=== PATIENT | female | born 1940 | race Caucasian/White ===

== ENCOUNTER → 2023-11-23 07:31 | Outpatient (REF) | payer MEDICARE, SELFPAY ==
[2023-11-23 09:06] LABS: Blood Urea Nitrogen 28 mg/dl (7-17); Calcium 9.9 mg/dl (8.4-10.2); Carbon Dioxide 31 mmol/L (22-30); Chloride 97 mmol/L (98-107); Glucose 100 mg/dl (70-99); Potassium 4.2 mmol/L (3.5-5.1); Sodium 134 mmol/L (135-145); eGFR > 60.00
== END ==
LOC: REG 07:31
PROVIDERS: ATTENDING PHYSICIAN Specialist; FAMILY PHYSICIAN Internal Medicine Geriatric Medicine
DX: I15.9 Secondary hypertension, unspecified (principal)
CPT/HCPCS: 36415; 80048

== ENCOUNTER → 2023-12-14 12:41 | Outpatient (REF) | payer MEDICARE, SELFPAY | LOC: RAD 12:41 | PROVIDERS: ATTENDING PHYSICIAN Internal Medicine Cardiovascular Disease; FAMILY PHYSICIAN Internal Medicine Geriatric Medicine | DX: Z98.890 Other specified postprocedural states (principal); G45.9 Transient cerebral ischemic attack, unspecified | CPT/HCPCS: 93880 ==

== ENCOUNTER → 2023-12-22 15:04 | Outpatient (REF) | payer MEDICARE, SELFPAY | LOC: RAD 15:04 | PROVIDERS: ATTENDING PHYSICIAN Physician Assistant; FAMILY PHYSICIAN Internal Medicine Geriatric Medicine | DX: M15.0 Primary generalized (osteo)arthritis (principal); M25.531 Pain in right wrist; M25.551 Pain in right hip; M79.651 Pain in right thigh; M80.00XA Age-related osteoporosis with current pathological fracture, unspecified site, initial encounter for fracture | CPT/HCPCS: 73100; 73130; 73502; 73552 ==

== ENCOUNTER → 2024-01-27 07:26 | Outpatient (REF) | payer MEDICARE, SELFPAY ==
[2024-01-27 08:30] LABS: % Basophils 1.1 % (0-2); % Eosinophils 1.1 % (0-6); % Immature Granulocytes 0.2 % (0-0.5); % Lymphocytes 35.2 % (20.5-51.1); % Monocytes 11.8 % (1.7-9.3); % Neutrophils 50.6 % (42.2-75.2); Absolute Basophils 0.1 10^3/uL (0-0.2); Absolute Eosinophils 0.1 10^3/uL (0-0.7); Absolute Lymphocytes 1.9 10^3/uL (1.2-3.4); Absolute Monocytes 0.6 10^3/uL (0.1-0.6); Absolute Neutrophils 2.7 10^3/uL (1.4-6.5); Hematocrit 35.6 % (37.0-47.0); Hemoglobin 12.1 g/dL (12.0-16.0); Mean Corpuscular Hgb 30.5 pg (27.0-31.0); Mean Corpuscular Volume 89.7 fL (81.0-99.0); Mean Platelet Volume 8.5 fL (7.4-10.4); Nucleated Red Blood Cells % 0 %; Platelet Count 321 10^3/uL (130-400); Red Blood Cell Count 3.97 10^6/uL (4.20-5.40); Red Cell Dist. Width 13.1 % (11.5-14.5); White Blood Cell Count 5.3 10^3/uL (4.8-10.8)
[2024-01-27 10:03] LABS: ALT (SGPT) 32 U/L (0-35); AST (SGOT) 43 U/L (14-36); Albumin 4.5 g/dl (3.5-5.0); Alkaline Phosphatase 47 U/L (38-126); Blood Urea Nitrogen 27 mg/dl (7-17); Calcium 10.1 mg/dl (8.4-10.2); Carbon Dioxide 29 mmol/L (22-30); Chloride 97 mmol/L (98-107); Glucose 93 mg/dl (70-99); HDL Cholesterol 92 mg/dl; LDL Cholesterol, Calculated 49 mg/dl; Potassium 4.2 mmol/L (3.5-5.1); Sodium 136 mmol/L (135-145); Total Bilirubin 0.6 mg/dl (0.2-1.3); Total Cholesterol 158 mg/dl (50-199); Total Protein 7.6 g/dl (6.3-8.2); Triglyceride 88 mg/dl (10-149); Very Low Density Lipoprotein 17 mg/dl (0-30); eGFR > 60.00
== END ==
LOC: REG 07:26
PROVIDERS: ATTENDING PHYSICIAN Internal Medicine Geriatric Medicine
DX: I48.0 Paroxysmal atrial fibrillation (principal); I10 Essential (primary) hypertension; E78.5 Hyperlipidemia, unspecified; I49.5 Sick sinus syndrome; Z95.0 Presence of cardiac pacemaker; R07.9 Chest pain, unspecified; M80.00XD Age-related osteoporosis with current pathological fracture, unspecified site, subsequent encounter for fracture with routine healing; R06.00 Dyspnea, unspecified; R79.89 Other specified abnormal findings of blood chemistry; E74.39 Other disorders of intestinal carbohydrate absorption; I25.10 Atherosclerotic heart disease of native coronary artery without angina pectoris; Z13.89 Encounter for screening for other disorder
CPT/HCPCS: 36415; 80053; 80061; 85025

== ENCOUNTER → 2024-02-03 14:25 | Outpatient (REF) | payer MEDICARE, SELFPAY ==
[2024-02-03 15:58] LABS: Creatine Phosphokinase 98 U/L (30-135); Uric Acid 4.9 mg/dl (2.5-6.2)
[2024-02-03 16:08] LABS: Erythrocyte Sed Rate 76 mm/hour (0-20)
[2024-02-04 14:54] LABS: Rheumatoid Agglutinin Less Than 10 IU (<10 IU)
[2024-02-06 01:36] LABS: CCP Antibody IgG/IgA 2 Units (0-19)
== END ==
LOC: REG 14:25
PROVIDERS: ATTENDING PHYSICIAN Internal Medicine Rheumatology; FAMILY PHYSICIAN Internal Medicine Geriatric Medicine
DX: M15.0 Primary generalized (osteo)arthritis (principal); M35.3 Polymyalgia rheumatica; M51.37 Other intervertebral disc degeneration, lumbosacral region; M81.0 Age-related osteoporosis without current pathological fracture; R94.5 Abnormal results of liver function studies; Z79.899 Other long term (current) drug therapy
CPT/HCPCS: 36415; 82550; 84550; 85652; 86140; 86200; 86430

== ENCOUNTER → 2024-03-07 07:54 | Outpatient (REF) | payer MEDICARE, SELFPAY ==
[2024-03-07 08:55] LABS: % Basophils 1.4 % (0-2); % Eosinophils 1.6 % (0-6); % Immature Granulocytes 0.2 % (0-0.5); % Lymphocytes 32.6 % (20.5-51.1); % Monocytes 11.5 % (1.7-9.3); % Neutrophils 52.7 % (42.2-75.2); Absolute Lymphocytes 1.4 10^3/uL (1.2-3.4); Absolute Monocytes 0.5 10^3/uL (0.1-0.6); Absolute Neutrophils 2.3 10^3/uL (1.4-6.5); Hematocrit 34.2 % (37.0-47.0); Hemoglobin 11.5 g/dL (12.0-16.0); Mean Corp Hgb Conc. 33.6 g/dL (33.0-37.0); Mean Corpuscular Hgb 30.3 pg (27.0-31.0); Mean Corpuscular Volume 90.2 fL (81.0-99.0); Mean Platelet Volume 8.3 fL (7.4-10.4); Platelet Count 265 10^3/uL (130-400); Red Blood Cell Count 3.79 10^6/uL (4.20-5.40); Red Cell Dist. Width 13.2 % (11.5-14.5); White Blood Cell Count 4.4 10^3/uL (4.8-10.8)
[2024-03-07 08:56] LABS: Absolute Basophils 0.1 10^3/uL (0-0.2); Absolute Eosinophils 0.1 10^3/uL (0-0.7); Nucleated Red Blood Cells % 0 %
[2024-03-07 09:17] LABS: Blood Urea Nitrogen 25 mg/dl (7-17); Calcium 9.5 mg/dl (8.4-10.2); Carbon Dioxide 30 mmol/L (22-30); Chloride 97 mmol/L (98-107); Glucose 100 mg/dl (70-99); Potassium 4.2 mmol/L (3.5-5.1); Sodium 135 mmol/L (135-145); Total CK 189 U/L (30-135); eGFR 55.21
[2024-03-07 09:19] LABS: C-Reactive Protein < 5.00 mg/L (0.0-10.00)
[2024-03-07 09:21] LABS: Iron 109 ug/dl (37-170)
[2024-03-07 09:26] LABS: Percent Saturation 31 % (20-50); Total Iron Binding Capacity 344 ug/dl (265-497)
[2024-03-07 09:43] LABS: CKMB 1.6 ng/ml (0.0-2.4)
[2024-03-07 09:53] LABS: Ferritin 27.5 ng/ml (11.1-264.0)
[2024-03-07 09:58] LABS: Erythrocyte Sed Rate 50 mm/hour (0-20)
[2024-03-07 10:24] LABS: Folate > 20.0 ng/ml (2.76-20); Vitamin B12 860 pg/ml (239-931)
[2024-03-07 15:09] LABS: Rheumatoid Agglutinin Less Than 10 IU (<10 IU)
[2024-03-09 01:53] LABS: CCP Antibody IgG/IgA 3 Units (0-19)
[2024-03-09 18:46] LABS: Albumin 4.05 g/dL (3.75-5.01); Alpha 2 Globulin 0.89 g/dL (0.48-1.05); SPEP IFE Reflex Not Done; Total Protein-Electrophoresis 7.2 g/dL (6.3-8.2)
== END ==
LOC: REG 07:54
PROVIDERS: ATTENDING PHYSICIAN Internal Medicine Rheumatology; FAMILY PHYSICIAN Internal Medicine Geriatric Medicine; OTHER PHYSICIAN Specialist; REFERRING PHYSICIAN Physician Assistant
DX: I15.9 Secondary hypertension, unspecified (principal); M35.3 Polymyalgia rheumatica; R70.0 Elevated erythrocyte sedimentation rate; Z51.81 Encounter for therapeutic drug level monitoring; D64.9 Anemia, unspecified; Z79.899 Other long term (current) drug therapy; M15.0 Primary generalized (osteo)arthritis; M25.50 Pain in unspecified joint; M81.0 Age-related osteoporosis without current pathological fracture; R94.5 Abnormal results of liver function studies
CPT/HCPCS: 36415; 80048; 82550; 82553; 82607; 82728; 82746; 83540; 83550; 84155; 84165; 84550; 85025; 85652; 86140; 86200; 86430

== ENCOUNTER → 2024-03-24 10:44 | Outpatient (REF) | payer MEDICARE, SELFPAY | LOC: WDC 10:44 | PROVIDERS: ATTENDING PHYSICIAN Internal Medicine Geriatric Medicine | DX: Z12.31 Encounter for screening mammogram for malignant neoplasm of breast (principal) | CPT/HCPCS: 77063; 77067 ==

== ENCOUNTER 2024-05-03 09:20 | Emergency (ER) | payer MEDICARE, SELFPAY ==
[2024-05-03] VITALS (16 sets, daily range): BP systolic 111–154; BP diastolic 64–95
--- NOTE | 2024-05-03 10:15 | EDRN ---
Pt thinks this is already on file here
[2024-05-03 10:31] LABS: ALT (SGPT) 26 U/L (0-35); AST (SGOT) 37 U/L (14-36); Albumin 4.4 g/dl (3.5-5.0); Alkaline Phosphatase 52 U/L (38-126); Blood Urea Nitrogen 30 mg/dl (7-17); Calcium 9.5 mg/dl (8.4-10.2); Carbon Dioxide 28 mmol/L (22-30); Chloride 96 mmol/L (98-107); Glucose 158 mg/dl (70-99); Potassium 4.3 mmol/L (3.5-5.1); Sodium 133 mmol/L (135-145); Total Bilirubin 0.5 mg/dl (0.2-1.3); Total Protein 7.2 g/dl (6.3-8.2); eGFR 55.21
[2024-05-03 10:37] LABS: % Basophils 0.7 % (0-2); % Eosinophils 0.9 % (0-6); % Immature Granulocytes 0.4 % (0-0.5); % Lymphocytes 26.5 % (20.5-51.1); % Monocytes 10.1 % (1.7-9.3); % Neutrophils 61.4 % (42.2-75.2); Absolute Eosinophils 0.1 10^3/uL (0-0.7); Absolute Lymphocytes 1.5 10^3/uL (1.2-3.4); Absolute Monocytes 0.6 10^3/uL (0.1-0.6); Absolute Neutrophils 3.5 10^3/uL (1.4-6.5); Hematocrit 37.2 % (37.0-47.0); Mean Corp Hgb Conc. 34.9 g/dL (33.0-37.0); Mean Corpuscular Hgb 30.4 pg (27.0-31.0); Mean Corpuscular Volume 86.9 fL (81.0-99.0); Mean Platelet Volume 8.5 fL (7.4-10.4); Nucleated Red Blood Cells % 0 %; Platelet Count 330 10^3/uL (130-400); Red Blood Cell Count 4.28 10^6/uL (4.20-5.40); Red Cell Dist. Width 13.1 % (11.5-14.5); White Blood Cell Count 5.6 10^3/uL (4.8-10.8)
--- NOTE | 2024-05-03 11:30 | ED.GENMED ---
History of Present Illness
General
Chief Complaint: Heart Rate Problem
Source: patient
Exam Limitations: none
Time Seen by Provider: 05/03/24 09:36
History of Present Illness
History of Present Illness:
83-year-old female with pacemaker history of atrial fibrillation on Xarelto presents in referral from cardiology office after office was notified from the device that patient has been in rapid A-fib since 3 days ago. She does note some shortness of
breath but denies chest tightness. She denies pain. She states she has been under a lot of stress. No other complaints at this time
Past History
Past History
ED Past Medical History: HTN and Other (Carotid endarterectomy, renal artery bypass 20 years ago and failed, spinal stenosis corrected by surgery, left hip prosthesis)
Social History
Tobacco: Non-smoker
Personal:
Phy Exam
Physical Exam
Physical Exam:
General: Well-appearing female no acute respiratory distress
HEENT: Normocephalic atraumatic
Heart: Tachycardic and irregular
Lungs: Clear no wheeze
Abdomen soft nontender
Extremities: No cyanosis
Course
Orders/Labs/Results
Orders:
Orders
05/03/24 09:31
Electrocardiogram (*1) Urgent
Reason for Study: Atrial Fibrillation
05/03/24 09:32
EKG- Treatment ONCE
05/03/24 09:49
TSH Reflex To Free T4 Urgent
05/03/24 10:09
Complete Blood Count/With Diff Urgent
Comprehensive Metabolic Panel Urgent
05/03/24 10:41
Add On- LAB Urgent
Tests Added?: tsh
05/03/24 10:46
Propofol [Diprivan] 20 ml .ROUTE .STK-MED
05/03/24 11:02
Electrocardiogram (*1) Urgent
Reason for Study: Atrial Fibrillation
EKG- Treatment ONCE
Abnormal Lab Results
05/03/24
10:09
Monocytes % 10.1 H %
(1.7-9.3)
Sodium 133 L mmol/L
(135-145)
Chloride 96 L mmol/L
(98-107)
BUN 30 H mg/dl
(7-17)
Glucose 158 H mg/dl
(70-99)
AST 37 H U/L
(14-36)
05/03/24 10:09
05/03/24 10:09
Vital Signs
Initial and Last Documented VS:
Initial Vital Signs
Pulse Resp Pulse Ox
139 20 97
05/03/24 09:41 05/03/24 09:41 05/03/24 09:41
Last Documented Vital Signs
Temp Pulse Resp BP Pulse Ox
97.8 F 63 17 129/84 99
05/03/24 09:52 05/03/24 11:35 05/03/24 11:35 05/03/24 11:35 05/03/24 11:35
Procedures
Moderate Sedation
ASA Risk Score: Class II
Chart and allergies reviewed: Yes
Consent for anesthesia obtained: Yes
Time out completed (validating right patient & procedure): Yes
Moderate Sedation Start Time(when first medication is given): 11:00
History of difficult intubation: No
Airway free of obstruction: Yes
Patient has a gag reflex: Yes
Patient is able to open mouth: Yes
Patient has no dentures: Yes
Patient has no loose teeth: Yes
Medication administered by Provider during Moderate Sedation: IV Propofol (mg)
Total dose administered: 4
Time drug administered: 11:00
Moderate Sedation Procedure End Time: 11:10
MDM/Problems Addressed
Differential Diagnosis Includes:
EKG shows rapid atrial fibrillation. Patient is anticoagulated. She has significant adverse reaction to calcium channel blockers and beta-blockers. She would be a good candidate for cardioversion. Discussed with emergency room attending as well
as cardiology on-call. Cardiology in agreement. Written consent obtained for moderate sedation with cardioversion.
Sedation performed by emergency room attending. Total of 40 mg of propofol was required 200 J of synchronized cardioversion. 1 attempt of cardioversion was successful. Resumed into a sinus rhythm that is rate controlled.
*Critical Care Note
Total Time (30-74mins, 75-104mins- exclusive of procedures): Not Applicable
ED Attending Note
-
Portions of this chart may have been created with voice recognition software.� Occasional wrong word or��sound alike� substitutions may have occurred due to the inherent limitations of voice recognition software.
Discharge Plan
Departure
Patient Disposition: Home (Routine Discharge)
Date of Disposition: 05/03/24
Time of Disposition: 12:02
Patient with high blood pressure during this ER visit?: No
Discharge Problem:
Atrial fibrillation
Instructions: Atrial Fibrillation (DC), MODERATE SEDATION ADULT
Prescriptions:
No Action
valsartan [Diovan] 160 MG tablet
160 mg PO DAILY
Patient Comments:
aliskiren [Tekturna] 150 MG tablet
150 mg PO DAILY
Xarelto 20 MG tablet
20 mg PO QPM
rosuvastatin [Crestor] 40 MG tablet
20 mg PO DAILY
atenolol 25 MG tablet
25 mg PO DAILY
coenzyme Q10 [Co Q-10] 100 MG capsule
300 mg PO DAILY
fish oil-dha-epa 1 EACH capsule
1 ea PO DAILY
cholecalciferol (vitamin D3) [Vitamin D3] 1,000 UNIT tablet
1,000 unit PO DAILY
ezetimibe 10 MG tablet
10 mg PO DAILY
multivitamin Tablet
1 tab PO DAILY
acetaminophen 500 mg Tablet
250 mg PO Q6H PRN (Reason: pain)
aspirin 81 mg Tablet,Chewable
81 mg PO DAILY
vitamin B complex Tablet
1 tab PO DAILY
Referrals:
Vern Daniels MD [Family Provider] -
Activity Restrictions/Additional Instructions:
Continue current medication regimen. Do not drive today. Follow-up with your manager pe.
Interventions
Interventions:
*Neglect/Abuse Screening Last Done: 05/03/24 10:13
ED- Fall Risk Assessment Last Done: 05/03/24 10:34
*ED COVID-19 Vaccine History Last Done: 05/03/24 10:34
ED- Cardiac Assessment Last Done: 05/03/24 10:12
ED- Pulmonary Assessment Last Done: 05/03/24 10:12
Discharge Date and Time
Print Language: PASHTO
[2024-05-03 13:11] LABS: TSH Reflex To Free T4 1.43 uIU/ml (0.47-4.68)
== END 2024-05-03 12:17 | disposition home or self-care (01) ==
LOC: EMR 09:20
PROVIDERS: Physician Assistant; EMERGENCY PHYSICIAN Emergency Medicine; FAMILY PHYSICIAN Internal Medicine Geriatric Medicine
DX: I48.91 Unspecified atrial fibrillation (principal); R06.02 Shortness of breath; I10 Essential (primary) hypertension; M48.00 Spinal stenosis, site unspecified; Z79.01 Long term (current) use of anticoagulants; Z96.642 Presence of left artificial hip joint; Z88.6 Allergy status to analgesic agent; Z88.8 Allergy status to other drugs, medicaments and biological substances; Z91.048 Other nonmedicinal substance allergy status
CPT/HCPCS: 99285; 92960; 99152; 80053; 84443; 85025; 93005

== ENCOUNTER 2024-05-13 15:01 | Inpatient (IN) | payer MEDICARE, SELFPAY ==
[2024-05-13] VITALS (18 sets, daily range): BP systolic 97–154; BP diastolic 61–116; BMI 24.3
--- NOTE | 2024-05-13 09:35 | ED.GENMED ---
History of Present Illness
General
Chief Complaint: Heart Rate Problem
Source: patient, records, family and previous hospital records
Exam Limitations: none
Time Seen by Provider: 05/13/24 09:12
Nursing documentation reviewed up to this point in time: agreed with
History of Present Illness
History of Present Illness:
83-year-old female A-fib status post ablation maintained on Cardizem and Xarelto status post cardioversion in the ER 10 days ago believes she has been in A-fib for 3 to 4 days, felt some fast heart rates heart rate was fast and took her blood
pressure mild chest pressure no shortness of breath no fever or chills, has been compliant with her meds,
Past History
Past History
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
ED Past Surgical History: Cardiac (Cryoballoon)
Social History
Tobacco: Non-smoker
Alcohol: None
Drug: None
Personal:
Living: with family
Employment: Retired
Review of Systems
Review of Systems
All Other Systems: Not applicable
Constitutional: Denies fever or fatigue
EENT: Reports no symptoms
Respiratory: Denies cough
Cardiac: Reports palpitations; Denies chest pain or syncope
ABD/GI: Reports no symptoms
: Reports no symptoms
Musculoskeletal: Reports no symptoms
Skin: Reports no symptoms
Neurological: Reports dizzy and weakness
Endocrine: Reports no symptoms
Phy Exam
Physical Exam
Physical Exam:
Physical Exam
General: no apparent distress, not acutely ill
Neck: No jaundice
Heart: Tachycardia
Lungs: no acute respiratory distress. clear bilaterally
Abdomen: Nontender
Neuro: alert and oriented. no focal neurological deficits
Skin: no rash
Psychiatric: well kept. interactive and cooperative
Extremities: no edema.
Course
Orders/Labs/Results
Orders:
Orders
05/13/24 09:01
EKG [Electrocardiogram (*1)] Urgent
Reason for Study: Atrial Fibrillation
EKG- Treatment ONCE
05/13/24 09:34
Complete Blood Count/With Diff Urgent
Comprehensive Metabolic Panel Urgent
Magnesium Urgent
TSH Urgent
05/13/24 09:39
Diltiazem HCl [Cardizem] 10 mg IV NOW STA
05/13/24 09:45
Diltiazem 125 mg/125 ml Nss [Cardizem] 125 mg in 125 ml IV PER PROTOCOL
Initial dose in mg/hr, then titrate:: 5
Titrate to keep:: Heart rate 80-100 bpm
Titrate by mg/hr:: 5 mg/hr
Frequency of titrations (minutes):: 15
Maximum dose in mg/hr:: 15
05/13/24 10:49
CARDIOLOGY CONSULT Urgent
Consulting Provider: Rohan Lott
Was physician already notified: Yes
05/13/24 11:39
Amiodarone [Pacerone] 400 mg PO NOW STA
Abnormal Lab Results
05/13/24
09:34
Absolute Monos (auto) 0.8 H 10^3/uL
(0.1-0.6)
Monocytes % 11.2 H %
(1.7-9.3)
BUN 33 H mg/dl
(7-17)
Creatinine 1.1 H mg/dL
(0.6-1.0)
Glucose 115 H mg/dl
(70-99)
AST 38 H U/L
(14-36)
05/13/24 09:34
05/13/24 09:34
Vital Signs
Initial and Last Documented VS:
Initial Vital Signs
Temp Pulse Resp BP Pulse Ox
97.7 F 101 18 118/89 97
05/13/24 09:07 05/13/24 09:07 05/13/24 09:07 05/13/24 09:07 05/13/24 09:07
Last Documented Vital Signs
Temp Pulse Resp BP Pulse Ox
97.7 F 96 24 132/67 96
05/13/24 09:07 05/13/24 13:00 05/13/24 13:00 05/13/24 13:00 05/13/24 13:00
MDM/Problems Addressed
Differential Diagnosis Includes:
A-fib RVR status post ablation status post pacemaker DC cardioversion
No fevers nontoxic-appearing
MDM/Problems Addressed:
Fast heart rate will need to clarify her allergies as they are incongruent with her history and the allergy
Chronic conditions affecting care: Arrhythmia
Acute Exacerbation and/or Progression of Chronic Illness: Arrhythmia
*Pulse Oximetry
Patient hypoxic: no
*EKG
Interpreted by ED Provider?: Yes
*Critical Care Note
Total Time (30-74mins, 75-104mins- exclusive of procedures): 14
Update Note
Update Note:
Medication allergies noted medication list noted patient takes Cardizem at home reviewed with pharmacy we will proceed with IV Cardizem will ask pharmacist update her allergy list
Update reviewed with cardiology will be admitted to the hospitalist service amiodarone has been started
ED Attending Note
-
Portions of this chart may have been created with voice recognition software.� Occasional wrong word or��sound alike� substitutions may have occurred due to the inherent limitations of voice recognition software.
Discharge Plan
Departure
Patient Disposition: Admit
Date of Disposition: 05/13/24
Time of Disposition: 13:54
Admit to: IVU
Presentation/result/management discussed w/ accepting MD/DO: Hospitalist
Patient with high blood pressure during this ER visit?: No
Condition: Fair
Covid-19: Not Applicable
Discharge Problem:
Paroxysmal atrial fibrillation
Prescriptions:
No Action
valsartan [Diovan] 160 MG tablet
160 mg PO QPM
Patient Comments:
aliskiren [Tekturna] 150 MG tablet
150 mg PO DAILY
cholecalciferol (vitamin D3) [Vitamin D3] 1,000 UNIT tablet
1,000 unit PO DAILY
ezetimibe 10 MG tablet
10 mg PO QPM
multivitamin Tablet
1 tab PO DAILY
acetaminophen 500 mg Tablet
250 mg PO Q6HPRN PRN (Reason: mild pain)
aspirin 81 mg Tablet,Chewable
81 mg PO DAILY
vitamin B complex Tablet
1 tab PO DAILY
rosuvastatin [Crestor] 20 mg Tablet
20 mg PO DAILY
nitroglycerin 0.2 mg/hr Patch 24 Hour
1 patch TRANSDERMAL DAILY
hydrochlorothiazide 25 mg Tablet
25 mg PO DAILY
diltiazem HCl 240 mg Tablet Extended Release 24 Hr
240 mg PO DAILY@1400
Hair, Skin and Nails Advanced 3.3 mg iron-25 mcg Tablet
1 tab PO DAILY
Xarelto 20 mg Tablet
20 mg PO QPM
turmeric 400 mg Capsule
400 mg PO DAILY
Referrals:
Rosa Conley CRNP [Specified Professional Personl] - 05/26/24 4:00 pm (You have a cardiology follow-up appointment at the [place] office with Dr. Roberts's nurse practitioner, Rosa. Please call with questions)
Vern Daniels MD [Family Provider] -
Interventions
Interventions:
*Risk Screen - Suicide Last Done: 05/13/24 09:07
*General Assessment Last Done: 05/13/24 09:07
*Neglect/Abuse Screening Last Done: 05/13/24 09:07
ED- Fall Risk Assessment Last Done: 05/13/24 10:08
*ED COVID-19 Vaccine History Last Done: 05/13/24 09:07
ED- Cardiac Assessment Last Done: 05/13/24 10:05
ED- Pulmonary Assessment Last Done: 05/13/24 10:06
Discharge Date and Time
Print Language: [id number]
[2024-05-13 09:47] LABS: % Basophils 0.9 % (0-2); % Eosinophils 0.9 % (0-6); % Immature Granulocytes 0.3 % (0-0.5); % Lymphocytes 23.5 % (20.5-51.1); % Monocytes 11.2 % (1.7-9.3); % Neutrophils 63.2 % (42.2-75.2); Absolute Basophils 0.1 10^3/uL (0-0.2); Absolute Eosinophils 0.1 10^3/uL (0-0.7); Absolute Lymphocytes 1.6 10^3/uL (1.2-3.4); Absolute Monocytes 0.8 10^3/uL (0.1-0.6); Absolute Neutrophils 4.4 10^3/uL (1.4-6.5); Hematocrit 37.8 % (37.0-47.0); Hemoglobin 13.3 g/dL (12.0-16.0); Mean Corp Hgb Conc. 35.2 g/dL (33.0-37.0); Mean Corpuscular Hgb 30.9 pg (27.0-31.0); Mean Corpuscular Volume 87.7 fL (81.0-99.0); Mean Platelet Volume 8.2 fL (7.4-10.4); Nucleated Red Blood Cells % 0 %; Platelet Count 281 10^3/uL (130-400); Red Blood Cell Count 4.31 10^6/uL (4.20-5.40)
[2024-05-13] MEDS: CARDIZEM 10 MG IV (09:53)
[2024-05-13] MEDS: CARDIZEM 125 IV (09:54)
[2024-05-13 10:23] LABS: ALT (SGPT) 22 U/L (0-35); AST (SGOT) 38 U/L (14-36); Albumin 4.5 g/dl (3.5-5.0); Alkaline Phosphatase 58 U/L (38-126); Blood Urea Nitrogen 33 mg/dl (7-17); Calcium 9.8 mg/dl (8.4-10.2); Carbon Dioxide 27 mmol/L (22-30); Chloride 99 mmol/L (98-107); Glucose 115 mg/dl (70-99); Magnesium 2.1 mg/dl (1.6-2.3); Potassium 3.8 mmol/L (3.5-5.1); Sodium 138 mmol/L (135-145); Total Bilirubin 0.7 mg/dl (0.2-1.3); Total Protein 7.4 g/dl (6.3-8.2); eGFR 49.24
[2024-05-13 10:39] LABS: TSH 0.88 uIU/ml (0.47-4.68)
--- NOTE | 2024-05-13 11:12 | CON.CAR ---
Addendum entered and electronically signed by Rohan Lott MD 05/13/24 15:11:
I saw and examined the patient.
The Dental Patient Coordinator's note was reviewed and I agree with the note.
Comment: Briefly, 83-year-old woman past medical history of atrial fibrillation with prior PVI in 2015 who presents in atrial fibrillation with rapid ventricular response
Of note, she presented to the emergency department on 05/03/24 with rapid A-fib and underwent direct-current cardioversion at that time
Started on Cardizem drip in the [facility] and HRs have improved
On PO cardizem 240 mg once daily at home, will increase to 240 twice daily for better heart rate control
Add p.o. amiodarone
Wean diltiazem drip for heart rate goal less than 110 bpm
If she does not spontaneously convert we can arrange for outpatient direct-current cardioversion
Continue Xarelto for cardioembolic prophylaxis
Discussed with daughter who was at bedside
Original Note:
Consultation
Consultation Request
Date/Time Consultation Performed: 05/13/24
Requesting Provider: Dr. Talley
Performing Provider: Lydia Hein PA-C for Dr. Lott
Reason for Consultation: afib
Medical History
-
Chief Complaint: afib
History of Present Illness:
Patient is an 83-year-old female with past medical history of paroxysmal atrial fibrillation status post PVI in 2014 on chronic Cardizem and Xarelto, hypertension, history of dual-chamber pacemaker, history of stroke, history of CEA, fibromuscular
dysplasia, hyperlipidemia. Her arrhythmia has been followed through her device post PVI. She reports an occasional brief episode here and there, however nothing sustained. She reports she was called by our office on 05/03 telling her she had been
in atrial fibrillation with rapid rates for the last 3 days and to go to the emergency room. She was cardioverted in the ER on 05/03. With this episode she had noted she felt more jittery and agitated and described some dyspnea on exertion and
tightness. She reports she felt well for several days, however then states that she had increased stress related to her 's medical illnesses. She states this morning when she checked her pulse she was in the 130s and noted headache and came
to the emergency room for further evaluation, thinking she was back in atrial fibrillation. EKG A-fib with RVR. She was started on IV Cardizem and heart rates now better controlled. She reports history of intolerance to beta-blockers.
PMH:
Paroxysmal atrial fibrillation
Status post PVI in 2014
Chronic anticoagulation with Xarelto
Labile Hypertension
History of dual-chamber pacemaker
History of L stroke
History of R CEA
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
Fibromuscular dysplasia s/p remote surgery
History of PMR
Hyperlipidemia
History of hyponatremia
History of mildly abnormal LFTs
History of splenic artery aneurysm
Past Medical History
Past Medical History: Other (in HPI)
Social History
Tobacco: Former Smoker
Alcohol: Occasional
Personal:
Living: With Family
Family History
Family History: CAD and Hypertension
Allergies / Home Medications
Allergy/AdvReac Type Severity Reaction Status Date / Time
cephalexin Allergy Rash Verified 05/13/24 09:10
iodine Allergy Hives Verified 05/13/24 09:10
lisinopril Allergy Swelling Verified 05/13/24 09:10
perfume Allergy heart Verified 05/13/24 09:10
speeds up
propranolol Allergy Unknown Verified 05/13/24 09:10
tramadol Allergy Nausea / Verified 05/13/24 09:10
Vomiting
�Medication �Instructions �Recorded �Confirmed �Type
aliskiren 150 mg tablet (Tekturna) 150 mg PO DAILY 08/28/14 06/23/22 History
rivaroxaban 20 mg tablet (Xarelto) 20 mg PO QPM 08/28/14 06/23/22 History
valsartan 160 mg tablet (Diovan) 160 mg PO DAILY 08/28/14 06/23/22 History
atenolol 25 mg tablet 25 mg PO DAILY 08/29/14 06/23/22 History
coenzyme Q10 100 mg capsule (Co 300 mg PO DAILY 08/29/14 06/23/22 History
Q-10)
rosuvastatin 40 mg tablet (Crestor) 20 mg PO DAILY 08/29/14 06/23/22 History
cholecalciferol (vitamin D3) 25 1,000 unit PO DAILY 10/09/14 06/23/22 History
mcg (1,000 unit) tablet (Vitamin
D3)
fish oil-dha-epa 1,200 mg-144 1 ea PO DAILY 10/09/14 06/23/22 History
mg-216 mg capsule
ezetimibe 10 mg tablet 10 mg PO DAILY 10/19/19 06/23/22 History
acetaminophen 500 mg tablet 250 mg PO Q6H PRN pain 06/04/22 06/23/22 History
aspirin 81 mg chewable tablet 81 mg PO DAILY 06/04/22 06/23/22 History
multivitamin 1 tab PO DAILY 06/04/22 06/23/22 History
vitamin B complex 1 tab PO DAILY 06/04/22 06/23/22 History
Review of Systems
-
History Source: Patient
All other systems: Negative unless noted
Physical Exam
Vital Signs
Temp Pulse Resp BP Pulse Ox
97.7 F 94 20 133/116 98
05/13/24 09:07 05/13/24 10:53 05/13/24 10:53 05/13/24 10:53 05/13/24 10:53
Lab Results
05/13/24 09:34
05/13/24 09:34
Physical Exam
General: No Apparent Distress and Comfortable
HEENT: Normocephalic, Anicteric and Moist Mucous Membranes
Respiratory: Clear and Non Labored Respirations
Cardiac: S1/S2 and Irregular Rhythm
GI: Soft, Non Tender, Non Distended and Normal Bowel Sounds
Musculoskeletal: No Clubbing, No Cyanosis and No Edema
Skin: Warm and Dry
Neuro: AO x 3
Impression / Plan
-
Primary Marriage And Family Teacher: Dr. Milly Worthy
Assessment:
Presentation with afib RVR
Paroxysmal atrial fibrillation
Status post PVI in 2014
Status post successful CV in ER 05/03/24
Chronic anticoagulation with Xarelto
Labile Hypertension
History of [employer] dual-chamber pacemaker
History of L stroke
History of R CEA
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
Fibromuscular dysplasia s/p remote surgery
History of PMR
Hyperlipidemia
History of hyponatremia
History of mildly abnormal LFTs
History of splenic artery aneurysm
ECHO 08/26/2023: EF 60 to 65%, stage II diastolic dysfunction, MAC, mild MR, mild , peak/mean gradients 15/9 mmHg, MERCEDES 1.2 to 1.3 cm�, trace AR, mild to moderate TR, PAP 39 mmHg
Plan:
-Patient presents with recurrence of A-fib with rapid ventricular response status post recent cardioversion in ER 05/03/2024
-She remains in rate controlled A-fib on 7.5 of IV Cardizem at present
-TSH within normal limits
-We discussed option of antiarrhythmic drug therapy with patient. She does have history of sensitivities to medications. She ideally does not want to stay in hospital if possible as it is primary caregiver for her . Would consider
initiation of p.o. amiodarone therapy, perhaps 400 mg now with 200 mg twice daily for 1 to 2 weeks then decreasing to 200 mg daily
-Continue p.o. Cardizem, could consider increasing dose if blood pressure allows
-We discussed outpatient EP eval to consider redo ablation
-Continue Xarelto
-last echo from 08/2023 with results as above
-Does not appear to be volume overloaded on examination
-Continue monitoring of arrhythmia through pacemaker
-Will arrange outpatient cardiac follow-up
-d/w ER
Data Reviewed
-
EKG: Tracing Personally Visualized and interpreted
Medical Tests (Nuc Med, Echo etc): Report Reviewed by me
Labs: Labs Reviewed by me
Old Records: Reviewed
[2024-05-13] MEDS: PACERONE 400 MG PO ×2 (12:02→20:39)
--- NOTE | 2024-05-13 13:00 | EDRN ---
D/C Cardizem infusion; VO DR Talley
--- NOTE | 2024-05-13 14:34 | HPS.HSE ---
Family Physician
-
Family Physician: Vern Daniels
Chief Complaint
-
I was told, I am in Afib.
History of Present Illness
82-year-old female past medical history of atrial fibrillation who was recently seen in the ER for atrial fibrillation with rapid ventricular response. Patient underwent cardioversion and was discharged home. Patient's at home she has been under
significant amount of stress as taking care of her spouse who has Parkinson's disease with dementia. Recently she checked her blood pressure and was found to be elevated. Also noticed her pulse on the blood pressure machine was seen to be elevated
and rhythm was irregular. Patient states she felt like she has been atrial fibrillation for the past 72 hours. Denies any chest pain. States of some palpitations. States she has pacemaker and she was called stating that she is in A-fib for
the past 3 days. She says she has been feeling ill for the past 3 days and thought she is back in A-fib. Denies any nausea or vomiting. Denies any headache neck pain chest pain diarrhea or dysuria. States she has history of renal artery stenosis
and her blood pressure is labile at times. In the ER patient was started on IV Cardizem and was evaluated by cardiology.
Medical History
Past Medical History
Past Medical History: Reports Other
Additional Past Medical History:
Paroxysmal atrial fibrillation status post ablation
Chronic anticoagulation
Primary hypertension
History of renal artery stenosis
Fibromuscular dysplasia
Hyperlipidemia
Past Surgical History: Reports Other
Additional Past Surgical History:
Pacemaker implantation
History of carotid endarterectomy
Social History
Tobacco: Former Smoker
Personal:
Living: With Family
Family History
Family History: Not pertinent
Allergies / Home Medications
Allergies reflects when Allergies were last updated in [facility].
Home Medications with original date entered in [facility]
Allergy/Medication List:
Allergies
Allergy/AdvReac Type Severity Reaction Status Date / Time
cephalexin Allergy Rash Verified 05/13/24 09:10
iodine Allergy Hives Verified 05/13/24 09:10
lisinopril Allergy Swelling Verified 05/13/24 09:10
perfume Allergy heart Verified 05/13/24 09:10
speeds up
propranolol Allergy Unknown Verified 05/13/24 09:10
tramadol Allergy Nausea / Verified 05/13/24 09:10
Vomiting
Home Medications
aliskiren 150 mg tablet (Tekturna) 150 mg PO DAILY 08/28/14
valsartan 160 mg tablet (Diovan) 160 mg PO QPM 08/28/14
cholecalciferol (vitamin D3) 25 mcg (1,000 unit) tablet (Vitamin D3) 1,000 unit PO DAILY 10/09/14
ezetimibe 10 mg tablet 10 mg PO QPM 10/19/19
acetaminophen 500 mg tablet 250 mg PO Q6HPRN PRN mild pain 06/04/22
aspirin 81 mg chewable tablet 81 mg PO DAILY 06/04/22
multivitamin 1 tab PO DAILY 06/04/22
vitamin B complex 1 tab PO DAILY 06/04/22
diltiazem HCl 240 mg tablet,extended release 24 hr 240 mg PO DAILY@1400 05/13/24
hydrochlorothiazide 25 mg tablet 25 mg PO DAILY 05/13/24
multivitamin,min-ferrous fumarate 3.3 mg-folic 25 mcg-herb tablet (Hair, Skin and Nails Advanced) 1 tab PO DAILY 05/13/24
nitroglycerin 0.2 mg/hr transdermal 24 hour patch 1 patch transdermal DAILY 05/13/24
rivaroxaban 20 mg tablet (Xarelto) 20 mg PO QPM 05/13/24
rosuvastatin 20 mg tablet 20 mg PO DAILY 05/13/24
turmeric 400 mg capsule 400 mg PO DAILY 05/13/24
Review of Systems
-
History Source: Patient
A 12 point ROS was completed and negative except as noted: Yes
Physical Exam
Vital Signs
Vital Signs
Temp Pulse Resp BP Pulse Ox
97.7 F 93 21 127/109 96
05/13/24 09:07 05/13/24 14:00 05/13/24 14:00 05/13/24 14:00 05/13/24 14:00
Physical Exam
General: Well Developed, Well Nourished, No Apparent Distress and Other
HEENT: NormoCephalic, Moist mucous membranes and Atraumatic
Respiratory: Clear
Cardiac: S1/S2, Irregular Rhythm and Tachycardia; No Murmur or Rub
GI: Soft, Non Tender, Non Distended and Normal Bowel Sounds; No Organomegaly
Rectal: Deferred by Provider
Musculoskeletal: No Clubbing, No Cyanosis and No Edema
Skin: No Rash
Neuro: Awake, Alert, Oriented, AO x 3, No Motor Deficits and Nonfocal/grossly intact
Psych: Calm
Laboratory Results
-
05/13/24 09:34
05/13/24 09:34
Laboratory Results
Total Bilirubin 0.7 mg/dl (0.2-1.3) 05/13/24 09:34
AST 38 U/L (14-36) H 05/13/24 09:34
ALT 22 U/L (0-35) 05/13/24 09:34
Alkaline Phosphatase 58 U/L (38-126) 05/13/24 09:34
Impression/Plan
-
#Paroxysmal atrial fibrillation with rapid ventricular response status post ablation status post cardioversion in the past
#History of pacemaker implantation
Cardizem drip was started and then discontinue. HR improved
Patient started on amiodarone loading dose and further amiodarone loading per cards.
Monitor on telemetry
Continue with anticoagulation
Can consider outpatient ablation
TSH wnl
Cardiology has been consulted
#Primary hypertension
#History of renal artery stenosis
Continue with Diovan
Hold HCTZ
Continue Cardizem/Tekturna
Elevated creatinine likely CKD unknown stage
Can hold HCTZ as cardiac meds further adjusted
Osteoporosis and history of chronic back pain with standing/osteoarthritis
Hyperlipidemia
Continue ezetimibe and statin
CAD
Continue nitroglycerin patch
Carotid artery disease status post endarterectomy
Continue with aspirin
Hyperglycemia
Check a1c
DVT prophylaxis with Xarelto
Full code
I spent a total of 78 minutes with the patient or on the floor. More than 50% of this time involved counseling and coordination of care.
[2024-05-13] MEDS: DIOVAN 160 MG PO (17:32)
[2024-05-13] MEDS: XARELTO 20 MG PO (17:32)
[2024-05-13] MEDS: ZETIA 10 MG PO (18:11)
[2024-05-13] MEDS: CARDIZEM CD 240 MG PO (20:39)
[2024-05-14 03:53] VITALS: BP 126/75
[2024-05-14 06:00] VITALS: BMI 24.0
[2024-05-14 07:08] VITALS: BP 143/84
[2024-05-14] MEDS: THERAGRAN 1 TABLET PO (08:25)
[2024-05-14] MEDS: NITRO-DUR 0.2 MG TRANSDERM (08:25)
[2024-05-14] MEDS: CARDIZEM CD 240 MG PO (08:25)
[2024-05-14] MEDS: CRESTOR 20 MG PO (08:25)
[2024-05-14] MEDS: PACERONE 400 MG PO (08:25)
[2024-05-14] MEDS: LOW STRENGTH ASPIRIN 81 MG PO (08:25)
[2024-05-14] MEDS: VITAMIN D3 (cholecalciferol) 25 MCG PO (08:25)
[2024-05-14] MEDS: FLUSH (NSS) 1 FLUSH IV (08:26)
[2024-05-14 08:32] LABS: Blood Urea Nitrogen 25 mg/dl (7-17); Calcium 9.8 mg/dl (8.4-10.2); Carbon Dioxide 29 mmol/L (22-30); Chloride 96 mmol/L (98-107); Estimated Creatinine Clearance 34 ml/min; Glucose 128 mg/dl (70-99); Magnesium 2.1 mg/dl (1.6-2.3); Potassium 4.1 mmol/L (3.5-5.1); Sodium 137 mmol/L (135-145); eGFR > 60.00
[2024-05-14 10:36] VITALS: BMI 24.0
[2024-05-14 11:00] VITALS: BP 114/68
--- NOTE | 2024-05-14 11:28 | W.PN.HOSP.TC ---
Today's Communication/Plan
-
HR improved
cont amiodarone loading dose
cardizem 240 BID
cards recs
Assessment / Plan
Assessment / Plan
#Paroxysmal atrial fibrillation with rapid ventricular response status post ablation status post cardioversion in the past
#History of pacemaker implantation
Cardizem drip was started and then discontinue. Cardizem 240 mg frequency increased to twice daily dosing
Patient started on amiodarone loading dose and further amiodarone loading per cards 400mg BID
Monitor on telemetry
Continue with Xarelto
Can consider outpatient ablation
TSH wnl
Cardiology has been consulted
#Primary hypertension
#History of renal artery stenosis
Continue with Diovan
restart HCTZ
Continue Cardizem/Tekturna
Elevated creatinine likely CKD unknown stage
restart hctz
cr stabilized
Osteoporosis and history of chronic back pain with standing/osteoarthritis
Hyperlipidemia
Continue ezetimibe and statin
CAD
Continue nitroglycerin patch
Carotid artery disease status post endarterectomy
Continue with aspirin
Hyperglycemia
Check a1c
DVT prophylaxis with Xarelto
Full code
Anticipated Discharge: Within 24 hours
Subjective/Interval History
-
Date of Service: May 14, 2024
Remains in A-fib but heart rate controlled
Denies any chest pain palpitations
Objective Data
-
Labs:
Laboratory Results
05/14/24
07:07
Sodium 137
Potassium 4.1
Chloride 96 L
Carbon Dioxide 29
BUN 25 H
Creatinine 0.9
Glucose 128 H
Calcium 9.8
Vital Signs:
Vital Signs
Temp Pulse Resp BP Pulse Ox
97.9 F 87 18 143/84 93
05/14/24 07:08 05/14/24 08:25 05/14/24 07:08 05/14/24 08:25 05/14/24 08:22
I&O
05/13/24 05/14/24 05/15/24
06:59 06:59 06:59
Intake Total 360 / 360
Balance 360 / 360
Physical Exam
-
General: Well Developed and No Apparent Distress
HEENT: Normocephalic, Atraumatic and Moist Mucous Membranes
Respiratory: Clear to Auscultation
Cardiac: S1/S2 and Irregular Rhythm; Negative Murmur, Rub or Gallop
GI: Soft, Nontender, Nondistended and Normal Bowel Sounds; Negative Organomegaly
Rectal: Deferred by Provider
Musculoskeletal: No Clubbing, No Cyanosis and No Edema
Skin: Negative Rash
Neuro: Awake, AO x 3, No Motor Deficits and Nonfocal/Grossly Intact
Psych: Calm
Data Reviewed
-
Total Time Spent with Patient (in minutes): 56
--- NOTE | 2024-05-14 12:34 | W.PN.CARDCBS ---
Today's Communication / Plan
-
Continue amio as putpatient followed by CV and then consideration for EPS/ablation
Impression / Plan
-
Primary Aniline Press Worker: Dr. Milly Worthy
Assessment:
Presentation with afib RVR
Paroxysmal atrial fibrillation
Status post PVI in 2014
Status post successful CV in ER 05/03/24
Chronic anticoagulation with Xarelto
Labile Hypertension
History of [employer] dual-chamber pacemaker
History of L stroke
History of R CEA
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
Fibromuscular dysplasia s/p remote surgery
History of PMR
Hyperlipidemia
History of hyponatremia
History of mildly abnormal LFTs
History of splenic artery aneurysm
ECHO 08/26/2023: EF 60 to 65%, stage II diastolic dysfunction, MAC, mild MR, mild , peak/mean gradients 15/9 mmHg, MERCEDES 1.2 to 1.3 cm�, trace AR, mild to moderate TR, PAP 39 mmHg
Plan:
-Patient presented with recurrence of A-fib and rapid ventricular response status post recent cardioversion in ER 05/03/2024. Previously had been doing well since PVI in 2014
Heart rates have improved and at present we will continue oral amiodarone loading as well as oral Cardizem
Amiodarone currently 400 mg twice daily, upon discharge would use Amio 200 mg TID for 2 more weeks, then 200 mg daily.
Short term control with cardioversion end of next week
Long-term she likely would do better with a rhythm control strategy, either long-term antiarrhythmic drug therapy or mapping and ablation. She tells me she is leaning towards ablation and will discuss further as outpatient.
Continue Xarelto
Last echo from 08/2023 with results as above
Does not appear to be volume overloaded on examination
Continue monitoring of arrhythmia through pacemaker
Discussed with primary service
Total time 55 min
Progress Note - Aniline Press Worker
Subjective
Date of Service: May 14, 2024
she feels 'better'. no SOB or CP at rest
Objective
Labs:
05/13/24 09:34
05/14/24 07:07
Labs
Hgb 13.3 g/dL (12.0-16.0) 05/13/24 09:34
Hct 37.8 % (37.0-47.0) 05/13/24 09:34
Plt Count 281 10^3/uL (130-400) 05/13/24 09:34
Sodium 137 mmol/L (135-145) 05/14/24 07:07
Potassium 4.1 mmol/L (3.5-5.1) 05/14/24 07:07
BUN 25 mg/dl (7-17) H 05/14/24 07:07
Creatinine 0.9 mg/dL (0.6-1.0) 05/14/24 07:07
Glucose 128 mg/dl (70-99) H 05/14/24 07:07
Vital Signs and I&O:
Vital Signs
Temp Pulse Resp BP Pulse Ox
97.9 F 87 18 143/84 93
05/14/24 07:08 05/14/24 08:25 05/14/24 07:08 05/14/24 08:25 05/14/24 08:22
Vital Signs
Temp Pulse Resp BP Pulse Ox
97.9 F 87 18 143/84 93
05/14/24 07:08 05/14/24 08:25 05/14/24 07:08 05/14/24 08:25 05/14/24 08:22
Intake & Output
05/12/24 05/13/24 05/14/24 05/15/24
06:59 06:59 06:59 06:59
Intake Total 360 / 360
Balance 360 / 360
Physical Exam
Physical Exam
well appearing, no distress
Irreg irreg, Nl S1 and S2, no S3 or S4, 2/6 AHSM without rubs
CTA B/L
[2024-05-14 12:53] VITALS: BP 114/68
--- NOTE | 2024-05-14 13:05 | W.DCSUMMARY ---
Discharge Summary
Discharge Data
Date of Admission: 05/13/24
Date of Discharge: 05/14/24
-
Pending Results: No
Hospital Course
83 female past medical history of paroxysmal atrial fibrillation status post cardioversion status post ablation, history of pacemaker implantation, hypertension, osteoporosis, chronic back pain, hyperlipidemia, CAD, carotid artery disease status
post endarterectomy was presenting from home with complaints of not feeling well and was found to be back again in atrial fibrillation with rapid ventricular response. Patient recently was on IV Cardizem infusion which was discontinued per
cardiology and was started on amiodarone. Patient Cardizem p.o. frequency was increased to 240 mg twice daily from daily dosing. Patient heart rate was well-controlled. Patient denies chest pain palpitation. Patient was evaluated further by
corporate consultant and recommended to continue Cardizem twice daily dosing continued and to change amiodarone to 200 mg 3 times daily for 2 weeks then 200 mg daily. Patient will follow-up outpatient with cardiology for further discussion about
possible ablation.
Discharge Plan
-
Patient Disposition: Home with Home Care
Discharge Diagnosis/Procedures: Atrial fibrillation with rapid ventricular response
Condition: Fair
Diet: As tolerated
Activity: As tolerated
Driving Restrictions: As prior to admission
Other Services: VN
Activity Restrictions/Additional Instructions:
Take Amiodarone 200 mg Three time a day for 2 more weeks, then 200 mg daily.
Referrals:
Rosa Conley CRNP [Specified Professional Personl] - 05/26/24 4:00 pm (You have a follow up visit with Dr. Atkins's PROP SAWYER, Rosa Conley, at the [facility] office. Please call with questions. )
Vern Daniels MD [Family Provider] -
Additional Discharge Medication Instructions: Take Amiodarone 200 mg Three time a day for 2 more weeks, then 200 mg daily.
Cardizem 240mg frequency increased to twice a day.
Prescriptions:
New
amiodarone 200 mg tablet
See Rx Instructions .ROUTE .COMPLEX 30 Days Qty: 60 0RF
Rx Instructions:
Take 200 mg TID for 2 more weeks, then 200 mg daily.
Continued
valsartan [Diovan] 160 MG tablet
160 mg PO QPM
Patient Comments:
aliskiren [Tekturna] 150 MG tablet
150 mg PO DAILY
cholecalciferol (vitamin D3) [Vitamin D3] 1,000 UNIT tablet
1,000 unit PO DAILY
ezetimibe 10 MG tablet
10 mg PO QPM
multivitamin Tablet
1 tab PO DAILY
acetaminophen 500 mg Tablet
250 mg PO Q6HPRN PRN (Reason: mild pain)
aspirin 81 mg Tablet,Chewable
81 mg PO DAILY
vitamin B complex Tablet
1 tab PO DAILY
rosuvastatin 20 mg Tablet
20 mg PO DAILY
nitroglycerin 0.2 mg/hr Patch 24 Hour
1 patch TRANSDERMAL DAILY
hydrochlorothiazide 25 mg Tablet
25 mg PO DAILY
Hair, Skin and Nails Advanced 3.3 mg iron-25 mcg Tablet
1 tab PO DAILY
Xarelto 20 mg Tablet
20 mg PO QPM
turmeric 400 mg Capsule
400 mg PO DAILY
Changed
diltiazem HCl 240 mg Tablet Extended Release 24 Hr
240 mg PO BID 30 Days Qty: 60 0RF
Discharge Orders:
Discharge Patient (As Directed); Ordered 05/14/24
Ordered By: Meo Nazario
Discharge Date and Time
Discharge Date/Time: 05/14/24 17:25
Print Language: SALVADOREAN
[2024-05-14 15:16] VITALS: BP 111/68
[2024-05-14 16:16] VITALS: BP 111/68
== END 2024-05-14 17:25 | disposition home health service (06) | DRG 310 ==
LOC: 4 EAST ACU 15:01
PROVIDERS: ADMITTING PHYSICIAN Hospitalist; CONSULT PHYSICIAN Internal Medicine Cardiovascular Disease; EMERGENCY PHYSICIAN Emergency Medicine; FAMILY PHYSICIAN Internal Medicine Geriatric Medicine
DX: I48.0 Paroxysmal atrial fibrillation (principal); I25.10 Atherosclerotic heart disease of native coronary artery without angina pectoris; I12.9 Hypertensive chronic kidney disease with stage 1 through stage 4 chronic kidney disease, or unspecified chronic kidney disease; N18.9 Chronic kidney disease, unspecified; M81.0 Age-related osteoporosis without current pathological fracture; E78.5 Hyperlipidemia, unspecified; Z79.82 Long term (current) use of aspirin; Z79.01 Long term (current) use of anticoagulants; Z95.0 Presence of cardiac pacemaker; Z86.73 Personal history of transient ischemic attack (TIA), and cerebral infarction without residual deficits
CPT/HCPCS: 80048; 80053; 83735; 84443; 85025; 93005; 96374; 99285

== ENCOUNTER 2024-05-20 07:17 | Day surgery (SDC) | payer MEDICARE, SELFPAY | END 2024-05-20 08:20 | disposition home or self-care (01) | LOC: CATH 07:17 | PROVIDERS: ATTENDING PHYSICIAN Nuclear Medicine Nuclear Cardiology; FAMILY PHYSICIAN Internal Medicine Geriatric Medicine; OTHER PHYSICIAN Internal Medicine Cardiovascular Disease | DX: I48.0 Paroxysmal atrial fibrillation (principal); Z53.09 Procedure and treatment not carried out because of other contraindication; I25.10 Atherosclerotic heart disease of native coronary artery without angina pectoris; I10 Essential (primary) hypertension; E78.5 Hyperlipidemia, unspecified; Z79.01 Long term (current) use of anticoagulants; Z79.82 Long term (current) use of aspirin | CPT/HCPCS: 93005 ==

== ENCOUNTER → 2024-06-08 07:56 | Outpatient (REF) | payer MEDICARE, SELFPAY ==
[2024-06-08 08:33] LABS: % Basophils 1.1 % (0-2); % Eosinophils 2.2 % (0-6); % Immature Granulocytes 0.2 % (0-0.5); % Lymphocytes 28.1 % (20.5-51.1); % Monocytes 10.4 % (1.7-9.3); Absolute Basophils 0.1 10^3/uL (0-0.2); Absolute Eosinophils 0.1 10^3/uL (0-0.7); Absolute Lymphocytes 1.3 10^3/uL (1.2-3.4); Absolute Monocytes 0.5 10^3/uL (0.1-0.6); Absolute Neutrophils 2.7 10^3/uL (1.4-6.5); Hematocrit 35.7 % (37.0-47.0); Hemoglobin 12.1 g/dL (12.0-16.0); Mean Corp Hgb Conc. 33.9 g/dL (33.0-37.0); Mean Corpuscular Hgb 29.8 pg (27.0-31.0); Mean Corpuscular Volume 87.9 fL (81.0-99.0); Mean Platelet Volume 8.5 fL (7.4-10.4); Nucleated Red Blood Cells % 0 %; Platelet Count 281 10^3/uL (130-400); Red Blood Cell Count 4.06 10^6/uL (4.20-5.40); Red Cell Dist. Width 13.4 % (11.5-14.5); White Blood Cell Count 4.6 10^3/uL (4.8-10.8)
[2024-06-08 09:12] LABS: ALT (SGPT) 36 U/L (0-35); AST (SGOT) 40 U/L (14-36); Albumin 4.3 g/dl (3.5-5.0); Alkaline Phosphatase 53 U/L (38-126); Blood Urea Nitrogen 24 mg/dl (7-17); Calcium 9.2 mg/dl (8.4-10.2); Carbon Dioxide 28 mmol/L (22-30); Chloride 100 mmol/L (98-107); Glucose 106 mg/dl (70-99); Sodium 142 mmol/L (135-145); Total Bilirubin 0.6 mg/dl (0.2-1.3); Total Protein 7.2 g/dl (6.3-8.2); eGFR 55.21
[2024-06-08 09:23] LABS: Free T4 1.61 ng/dl (0.78-2.19)
[2024-06-08 10:32] LABS: TSH 1.95 uIU/ml (0.47-4.68)
== END ==
LOC: REG 07:56
PROVIDERS: ATTENDING PHYSICIAN Internal Medicine Geriatric Medicine
DX: Z09 Encounter for follow-up examination after completed treatment for conditions other than malignant neoplasm (principal); I48.0 Paroxysmal atrial fibrillation; I10 Essential (primary) hypertension; E78.5 Hyperlipidemia, unspecified; I49.5 Sick sinus syndrome; Z95.0 Presence of cardiac pacemaker; R07.9 Chest pain, unspecified; M80.00XD Age-related osteoporosis with current pathological fracture, unspecified site, subsequent encounter for fracture with routine healing; R06.00 Dyspnea, unspecified; R79.89 Other specified abnormal findings of blood chemistry; E74.39 Other disorders of intestinal carbohydrate absorption; I25.10 Atherosclerotic heart disease of native coronary artery without angina pectoris; Z13.89 Encounter for screening for other disorder
CPT/HCPCS: 80053; 84439; 84443; 85025

== ENCOUNTER → 2024-06-15 13:44 | Outpatient (REF) | payer MEDICARE, SELFPAY | LOC: RCS 13:44 | PROVIDERS: ATTENDING PHYSICIAN Nurse Practitioner; FAMILY PHYSICIAN Internal Medicine Geriatric Medicine | DX: I48.0 Paroxysmal atrial fibrillation (principal); I10 Essential (primary) hypertension | CPT/HCPCS: 93306 ==

== ENCOUNTER → 2024-09-21 09:33 | Outpatient (REF) | payer MEDICARE, SELFPAY ==
[2024-09-21 11:43] LABS: ALT (SGPT) 31 U/L (0-35); AST (SGOT) 46 U/L (14-36); Albumin 4.3 g/dl (3.5-5.0); Alkaline Phosphatase 56 U/L (38-126); Blood Urea Nitrogen 24 mg/dl (7-17); Calcium 9.3 mg/dl (8.4-10.2); Carbon Dioxide 33 mmol/L (22-30); Chloride 95 mmol/L (98-107); Glucose 100 mg/dl (70-99); Potassium 4.1 mmol/L (3.5-5.1); Sodium 136 mmol/L (135-145); Total Bilirubin 0.6 mg/dl (0.2-1.3); Total Protein 7.4 g/dl (6.3-8.2); eGFR 49.24
[2024-09-21 12:54] LABS: Vitamin D, 25-OH*** 40.1 ng/mL (30-80)
== END ==
LOC: REG 09:33
PROVIDERS: ATTENDING PHYSICIAN Internal Medicine Rheumatology; FAMILY PHYSICIAN Internal Medicine Geriatric Medicine
DX: E55.9 Vitamin D deficiency, unspecified (principal); M15.0 Primary generalized (osteo)arthritis; M35.3 Polymyalgia rheumatica; M51.370 Other intervertebral disc degeneration, lumbosacral region with discogenic back pain only; M81.0 Age-related osteoporosis without current pathological fracture; Z79.899 Other long term (current) drug therapy
CPT/HCPCS: 36415; 80053; 82306

== ENCOUNTER → 2024-10-04 07:40 | Outpatient (REF) | payer MEDICARE, SELFPAY ==
[2024-10-04 08:30] LABS: % Basophils 0.8 % (0-2); % Eosinophils 0.9 % (0-6); % Immature Granulocytes 0.2 % (0-0.5); % Lymphocytes 23.3 % (20.5-51.1); % Monocytes 10.7 % (1.7-9.3); % Neutrophils 64.1 % (42.2-75.2); Absolute Basophils 0.1 10^3/uL (0-0.2); Absolute Eosinophils 0.1 10^3/uL (0-0.7); Absolute Lymphocytes 1.5 10^3/uL (1.2-3.4); Absolute Monocytes 0.7 10^3/uL (0.1-0.6); Absolute Neutrophils 4.2 10^3/uL (1.4-6.5); Hematocrit 36.1 % (37.0-47.0); Mean Corp Hgb Conc. 33.2 g/dL (33.0-37.0); Mean Corpuscular Hgb 29.3 pg (27.0-31.0); Mean Corpuscular Volume 88.3 fL (81.0-99.0); Mean Platelet Volume 8.4 fL (7.4-10.4); Nucleated Red Blood Cells % 0 %; Platelet Count 329 10^3/uL (130-400); Red Blood Cell Count 4.09 10^6/uL (4.20-5.40); Red Cell Dist. Width 13.8 % (11.5-14.5); White Blood Cell Count 6.5 10^3/uL (4.8-10.8)
[2024-10-04 08:46] LABS: Erythrocyte Sed Rate 67 mm/hour (0-20)
[2024-10-04 08:55] LABS: ALT (SGPT) 26 U/L (0-35); AST (SGOT) 44 U/L (14-36); Albumin 4.6 g/dl (3.5-5.0); Alkaline Phosphatase 58 U/L (38-126); Blood Urea Nitrogen 29 mg/dl (7-17); Calcium 9.2 mg/dl (8.4-10.2); Carbon Dioxide 31 mmol/L (22-30); Chloride 94 mmol/L (98-107); Glucose 100 mg/dl (70-99); HDL Cholesterol 92 mg/dl; Iron 99 ug/dl (37-170); LDL Cholesterol, Calculated 56 mg/dl; Potassium 4.3 mmol/L (3.5-5.1); Sodium 136 mmol/L (135-145); Total Bilirubin 0.6 mg/dl (0.2-1.3); Total Cholesterol 160 mg/dl (50-199); Total Protein 8.1 g/dl (6.3-8.2); Triglyceride 64 mg/dl (10-149); Very Low Density Lipoprotein 12 mg/dl (0-30); eGFR 49.24
[2024-10-04 09:04] LABS: Percent Saturation 25 % (20-50); Total Iron Binding Capacity 386 ug/dl (265-497)
[2024-10-04 09:04] LABS: Urine Albumin Trace (Neg - Trace); Urine Bilirubin Negative (Negative); Urine Character Slightly Cloudy (Clear); Urine Color Yellow; Urine Glucose Negative (Negative); Urine Ketone Negative (Negative); Urine Leukocyte Trace (Negative); Urine Nitrite Negative (Negative); Urine Occult Blood 2+ (Negative); Urine Urobilinogen Negative (Neg - 1+)
[2024-10-04 09:12] LABS: Vitamin D, 25-OH*** 40.2 ng/mL (30-80)
[2024-10-04 09:19] LABS: Urine Squamous Cell 0-2 /LPF (Few)
[2024-10-04 09:20] LABS: Urine Bacteria Few (Negative); Urine White Cell 16-20 /HPF (0-5)
[2024-10-04 09:26] LABS: TSH 1.71 uIU/ml (0.47-4.68)
[2024-10-04 09:30] LABS: Ferritin 21.8 ng/ml (11.1-264.0)
[2024-10-04 09:33] LABS: Protein/creatinine Ratio 0.4; Urine Protein 29 mg/dl
[2024-10-04 09:38] LABS: Microalbumin/creatinine Ratio 135.3 mg/g
[2024-10-04 09:43] LABS: Free T4 1.92 ng/dl (0.78-2.19)
[2024-10-04 10:47] LABS: Glycohemoglobin (HgbA1c) 6.1 % (4.0-5.6)
[2024-10-06 12:49] LABS: 24 Hour Urine Total Volume Random mL; Urine Collection Length Random hr; Urine Free Kappa Light Chains 93.86 mg/L (0.00-32.90)
== END ==
LOC: REG 07:40
PROVIDERS: ATTENDING PHYSICIAN Internal Medicine Geriatric Medicine; FAMILY PHYSICIAN Specialist
DX: N18.31 Chronic kidney disease, stage 3a (principal); E11.9 Type 2 diabetes mellitus without complications; I10 Essential (primary) hypertension; I48.0 Paroxysmal atrial fibrillation; E78.5 Hyperlipidemia, unspecified; I49.5 Sick sinus syndrome; Z95.0 Presence of cardiac pacemaker; R07.9 Chest pain, unspecified; M80.00XD Age-related osteoporosis with current pathological fracture, unspecified site, subsequent encounter for fracture with routine healing; R06.00 Dyspnea, unspecified; R79.89 Other specified abnormal findings of blood chemistry; Z13.89 Encounter for screening for other disorder; E74.39 Other disorders of intestinal carbohydrate absorption; I25.10 Atherosclerotic heart disease of native coronary artery without angina pectoris
CPT/HCPCS: 36415; 80053; 80061; 81003; 81015; 82043; 82306; 82570; 82728; 83036; 83521; 83540; 83550; 84156; 84439; 84443; 85025; 85652; 86335

== ENCOUNTER 2024-10-11 05:51 | Day surgery (SDC) | payer MEDICARE, SELFPAY ==
[2024-08-23 10:11] VITALS: BMI 24.0
[2024-10-06 10:20] VITALS: BMI 25.0
[2024-10-11] VITALS (14 sets, daily range): BP systolic 137–189; BP diastolic 56–80; BMI 25.0
[2024-10-11 06:55] LABS: Glucose - Point of Care 104 mg/dl (70-99)
[2024-10-11] MEDS: NSS 500 IV (07:23)
--- NOTE | 2024-10-11 08:10 | ITS.CL.ABL ---
Cost And Sales Record Supervisor - Ablation
Ablation
Procedure Report:
ELECTROPHYSIOLOGIC STUDY AND POSSIBLE ABLATION
DATE: October 11, 2024
Primary Care Physician: Dr. Daniels
Primary General Internist And Physician Leader: Dr. Milly Worthy
INDICATION:
Symptomatic Atrial Fibrillation.
Persistent
HISTORY: See H and P.
Symptomatic AF, poorly controlled with attempted medical therapy.
She underwent EP study for symptom October 11, 2014 and did well for approximately 9 years after which she started having symptomatic recurrences of atrial fibrillation despite antiarrhythmic drug therapy with amiodarone and presents now for EP
study and ablation.
She has been maintained on Xarelto 20 mg daily for atrial fibrillation related thromboembolic risk reduction.
Of note, echocardiogram from May 26, 2024 shows markedly enlarged left atrium and mildly enlarged right atrium. There is normal left ventricular systolic function. There is mild aortic stenosis with peak and mean gradients of 15 and 8 mmHg.
She has previously undergone pacemaker implantation, dual-chamber for sick sinus syndrome.
HAS-BLED: 4
Age
Abnormal Renal Function
Abnormal Liver Function
H/O Stroke
CHADSVASc: 7
HTN
Age
h/o Stroke
Vascular Dz: PAD (carotid disease with prior endarterectomy)
F Gender
PRESENTING RHYTHM: SR
HISTORY: See H and P.
Symptomatic AF, poorly controlled with attempted medical therapy.
ANTIARRHYTHMIC DRUG: Amiodarone
ANTICOAGULATION: Xarelto 20 mg daily
'TIME-OUT': called and confirmed.
SEDATION/ANESTHESIA: provided via the anesthesia department using general anesthesia.
PROCEDURE:
Ultrasound Guidance with real-time visualization of needle insertion and vessel patency performed by nc for femoral venous Vascular Access. Images were taken and saved for the patient's permanent record. Imaging findings typical femoral venous
anatomy. Direct visualization of needle puncture into the femoral vein was observed and recorded.
A decapolar CS catheter was placed within the CS for mapping and pacing.
The intracardiac ultrasound catheter was positioned in the RA for continuous intracardiac ultrasound imaging.
Heparin bolus and infusion to target ACT at 300 -350 seconds was administered. Transseptal puncture was performed. This entailed advancing a sheath with dilator into the superior vena cava and withdrawing both (monitoring intracardiac ultrasound,
fluoroscopy and tip pressure) with the tip oriented toward the atrial septum. The fossa ovalis was engaged (indicated by sudden displacement of the sheath tip as well as tenting of the fossa seen on intracardiac ultrasound).
The Splitforce transseptal system was used. Left atrial catheter position was confirmed by echocardiographic imaging and fluoroscopy followed by RF delivery using the [employer] system resulting in successful LA access with pressure monitoring
demonstrating LA pressure waveforms (LA mean pressure 5 mm Hg). The sheath was advanced over the dilator and positioned in the left atrium.
The Turbo-Trac [employer] Grid multipolar mapping catheter was initially positioned through the transseptal sheath for high density mapping.
Geometry and voltage mapping was performed using the Shay multipolar grid catheter. Ensite-X was utilized for three-dimensional electroanatomical mapping.
A 3-D map was created using Ensite-X in Voxel mode. A 3-D reconstructed CT image was compared to the 3-D Navex map to assist in anatomic evaluation, mapping and ablation.
Mapping finds minimal reconnection at the LSPV posteriorly, the LIPV, RSPV, RIPV are fully isolated with entrance and exit block. The posterior wall of the left atrium finds patchy scarring with fractionated electrograms in sinus rhythm. Mapping
also demonstrates a left atrial diverticulum which is seen on the CT reconstructed images well this is at the dome of the left atrium anteriorly towards the right superior pulmonary vein. While mapping in this area there is burst of atrial
tachycardia.
The Farap[employer]ore Water PFA catheter and system was used for cardiac ablation. Catheter positioning was guided and confirmed using both I.C.E. and fluoroscopy.
Ablation strategy consisted of reisolating the left superior pulmonary vein, additional ablation lesion set targeting the posterior wall of the left atrium and isolating the posterior wall of the left atrium. A second tachycardia was mapped to the
left atrial diverticulum and pulsed electric field energy was delivered with the femoral pulse system using the flower configuration to target the atrial tach from the left atrial diverticulum. This was successfully performed.
Remapping and pacing with the Turbo-Trac [employer] multipolar grid catheter finds entrance and exit block at each of the 4 pulmonary veins, entrance and exit block throughout the posterior wall of the left atrium as well as successful ablation of the atrial
tachycardia at the left atrial diverticulum.
Programmed electrical stimulation including burst atrial pacing down to atrial ERP was unable to induce any arrhythmias.
Using fluoroscopy, the catheters were withdrawn from the heart. There is no fluoroscopic change in the appearance of the right atrial pacing lead or the right ventricular pacing lead.
I.C.E. :
Pre-Ablation Post-Ablation
LVEF: 55 % 55 %
WMA: none none
Pericardial effusion: trace trace
COMPLICATIONS:
None
SUMMARY:
- Mapping and ablation to isolate the PVs
- Additional AF ablation set after PVI.
- Mapping and ablation of second tachycardia
- 3-D Electroanatomical Mapping
- Intracardiac Ultrasound
- Ultrasound guidance for vascular access
Post ablation, I discussed today's findings and results with the patient's daughter, Lupe.
RECOMMENDATIONS:
- Observe in monitored bed.
- Maintain oral anticoagulation.
- Discontinue amiodarone
- Office visit has been scheduled for December 06, 2024
- Continue cardiovascular care with Dr Milly Worthy
Copy to:
Dr. Daniels
Dr. Milly Worthy
[2024-10-11 08:52] LABS: ACT-LR - POC 384 Seconds (116-155)
--- NOTE | 2024-10-11 13:23 | W.PN.UPDATE ---
Update Note
Progress Note Update
83 yo WF s/p PVI (Same day). She denies cp, sob, leticia diet, R fem c/d/i no HT, soft, EKG Apaced. She will resume Xarelto tonight. She will stop Amiodarone. Activity restrictions reviewed. She will f/u Marisa DATA CODER OPERATOR in 1 mo. She is for d/c home after 2p
if groin stable and able to void.
== END 2024-10-11 13:59 | disposition home or self-care (01) ==
LOC: CATH 05:51
PROVIDERS: ATTENDING PHYSICIAN Internal Medicine Cardiovascular Disease; FAMILY PHYSICIAN Internal Medicine Geriatric Medicine; OTHER PHYSICIAN Internal Medicine Cardiovascular Disease
DX: I48.19 Other persistent atrial fibrillation (principal); I12.9 Hypertensive chronic kidney disease with stage 1 through stage 4 chronic kidney disease, or unspecified chronic kidney disease; E78.5 Hyperlipidemia, unspecified; I25.10 Atherosclerotic heart disease of native coronary artery without angina pectoris; I65.23 Occlusion and stenosis of bilateral carotid arteries; I49.5 Sick sinus syndrome; Z95.0 Presence of cardiac pacemaker; I08.3 Combined rheumatic disorders of mitral, aortic and tricuspid valves; Q79.8 Other congenital malformations of musculoskeletal system; I70.202 Unspecified atherosclerosis of native arteries of extremities, left leg; Q27.39 Arteriovenous malformation, other site; E11.22 Type 2 diabetes mellitus with diabetic chronic kidney disease; Z79.84 Long term (current) use of oral hypoglycemic drugs; K21.9 Gastro-esophageal reflux disease without esophagitis; K59.09 Other constipation; Z86.73 Personal history of transient ischemic attack (TIA), and cerebral infarction without residual deficits; Z86.018 Personal history of other benign neoplasm; M54.30 Sciatica, unspecified side; M19.90 Unspecified osteoarthritis, unspecified site; Z96.642 Presence of left artificial hip joint; M35.3 Polymyalgia rheumatica; D64.9 Anemia, unspecified; M81.0 Age-related osteoporosis without current pathological fracture; R74.01 Elevation of levels of liver transaminase levels; Z86.69 Personal history of other diseases of the nervous system and sense organs; Z79.899 Other long term (current) drug therapy; Z79.01 Long term (current) use of anticoagulants; F17.210 Nicotine dependence, cigarettes, uncomplicated; N18.30 Chronic kidney disease, stage 3 unspecified; Z88.1 Allergy status to other antibiotic agents; Z88.5 Allergy status to narcotic agent; I77.9 Disorder of arteries and arterioles, unspecified; Z91.041 Radiographic dye allergy status; Z98.890 Other specified postprocedural states; Z88.8 Allergy status to other drugs, medicaments and biological substances
CPT/HCPCS: C1732; C1894; C1730; C1892; 82962; 85347; 93005; 93655; 93656; 93657; C1733; C1766

== ENCOUNTER → 2024-11-08 07:34 | Outpatient (REF) | payer MEDICARE, SELFPAY ==
[2024-11-08 08:22] LABS: % Basophils 0.8 % (0-2); % Eosinophils 1.2 % (0-6); % Immature Granulocytes 0.3 % (0-0.5); % Lymphocytes 28.6 % (20.5-51.1); % Monocytes 10.8 % (1.7-9.3); % Neutrophils 58.3 % (42.2-75.2); Absolute Basophils 0.1 10^3/uL (0-0.2); Absolute Eosinophils 0.1 10^3/uL (0-0.7); Absolute Lymphocytes 1.7 10^3/uL (1.2-3.4); Absolute Monocytes 0.7 10^3/uL (0.1-0.6); Absolute Neutrophils 3.5 10^3/uL (1.4-6.5); Hematocrit 38.5 % (37.0-47.0); Hemoglobin 12.6 g/dL (12.0-16.0); Mean Corp Hgb Conc. 32.7 g/dL (33.0-37.0); Mean Corpuscular Hgb 28.8 pg (27.0-31.0); Mean Corpuscular Volume 87.9 fL (81.0-99.0); Mean Platelet Volume 8.4 fL (7.4-10.4); Nucleated Red Blood Cells % 0 %; Platelet Count 322 10^3/uL (130-400); Red Blood Cell Count 4.38 10^6/uL (4.20-5.40); Red Cell Dist. Width 14.3 % (11.5-14.5)
[2024-11-08 09:21] LABS: Albumin 4.4 g/dl (3.5-5.0); Blood Urea Nitrogen 26 mg/dl (7-17); Calcium 9.7 mg/dl (8.4-10.2); Carbon Dioxide 26 mmol/L (22-30); Chloride 98 mmol/L (98-107); Glucose 112 mg/dl (70-99); Phosphorus 4.2 mg/dl (2.5-4.5); Potassium 3.8 mmol/L (3.5-5.1); Sodium 135 mmol/L (135-145); eGFR 49.24
[2024-11-08 10:10] LABS: Urine Albumin 1+ (Neg - Trace); Urine Bilirubin Negative (Negative); Urine Character Clear (Clear); Urine Color Yellow; Urine Glucose Negative (Negative); Urine Ketone Negative (Negative); Urine Leukocyte 3+ (Negative); Urine Nitrite Negative (Negative); Urine Occult Blood 3+ (Negative); Urine Specific Gravity 1.015 (<1.030); Urine Urobilinogen Negative (Neg - 1+)
[2024-11-08 10:24] LABS: Protein/creatinine Ratio 0.1; Urine Protein 14 mg/dl
[2024-11-08 10:30] LABS: Microalbumin, Random Urine 3.1 mg/dl (0.6-1.7); Microalbumin/creatinine Ratio 30.4 mg/g
[2024-11-08 11:22] LABS: Urine Amorphous Seen
[2024-11-08 11:24] LABS: Urine Bacteria Few (Negative); Urine White Cell 21-25 /HPF (0-5)
== END ==
LOC: REG 07:34
PROVIDERS: ATTENDING PHYSICIAN Specialist; FAMILY PHYSICIAN Internal Medicine Geriatric Medicine
DX: R79.89 Other specified abnormal findings of blood chemistry (principal); Z86.39 Personal history of other endocrine, nutritional and metabolic disease; I70.1 Atherosclerosis of renal artery; I10 Essential (primary) hypertension; E87.1 Hypo-osmolality and hyponatremia
CPT/HCPCS: 36415; 80069; 81003; 81015; 82043; 82570; 84156; 85025

== ENCOUNTER → 2024-12-16 14:01 | Outpatient (REF) | payer MEDICARE, SELFPAY ==
[2024-12-19 11:53] LABS: Lyme Antibody Screen, EIA Negative (Negative)
== END ==
LOC: REG 14:01
PROVIDERS: ATTENDING PHYSICIAN Nurse Practitioner Family
DX: T14.8XXA Other injury of unspecified body region, initial encounter (principal); W57.XXXA Bitten or stung by nonvenomous insect and other nonvenomous arthropods, initial encounter
CPT/HCPCS: 36415; 86618

== ENCOUNTER → 2025-01-23 08:12 | Outpatient (REF) | payer MEDICARE, SELFPAY | LOC: HWRCS 08:12 | PROVIDERS: ATTENDING PHYSICIAN Internal Medicine Cardiovascular Disease; FAMILY PHYSICIAN Internal Medicine Geriatric Medicine | DX: I48.0 Paroxysmal atrial fibrillation (principal); R06.09 Other forms of dyspnea; R07.89 Other chest pain | CPT/HCPCS: 78452; 93017; A9500; J2785 ==

== ENCOUNTER → 2025-01-25 09:47 | Outpatient (REF) | payer MEDICARE, SELFPAY | LOC: RAD 09:47 | PROVIDERS: ATTENDING PHYSICIAN Internal Medicine Cardiovascular Disease; FAMILY PHYSICIAN Internal Medicine Geriatric Medicine | DX: Z98.890 Other specified postprocedural states (principal); I77.1 Stricture of artery | CPT/HCPCS: 93880 ==

== ENCOUNTER → 2025-01-31 12:44 | Outpatient (REF) | payer MEDICARE, SELFPAY | LOC: RAD 12:44 | PROVIDERS: ATTENDING PHYSICIAN Internal Medicine Rheumatology; FAMILY PHYSICIAN Internal Medicine Geriatric Medicine | DX: Z13.820 Encounter for screening for osteoporosis (principal); M85.89 Other specified disorders of bone density and structure, multiple sites | CPT/HCPCS: 77080 ==

== ENCOUNTER → 2025-02-21 07:44 | Outpatient (REF) | payer MEDICARE, SELFPAY | LOC: RSP 07:44 | PROVIDERS: ATTENDING PHYSICIAN Internal Medicine Geriatric Medicine | DX: M54.50 Low back pain, unspecified (principal); R06.00 Dyspnea, unspecified; R06.09 Other forms of dyspnea | CPT/HCPCS: 94727; 94729; 88738; 94010 ==

== ENCOUNTER 2025-03-10 09:56 | Outpatient (RCR) | payer MEDICARE, SELFPAY | END 2025-03-10 23:59 | disposition home or self-care (01) | LOC: RPT 09:56 | PROVIDERS: ATTENDING PHYSICIAN Internal Medicine Geriatric Medicine | DX: M54.51 Vertebrogenic low back pain (principal); Z73.6 Limitation of activities due to disability; M81.0 Age-related osteoporosis without current pathological fracture; M25.552 Pain in left hip; M25.551 Pain in right hip; R20.0 Anesthesia of skin; R26.89 Other abnormalities of gait and mobility | CPT/HCPCS: 97010; 97110; 97162 ==

== ENCOUNTER → 2025-03-13 10:04 | Outpatient (REF) | payer MEDICARE, SELFPAY ==
[2025-03-13 11:12] LABS: % Basophils 0.6 % (0-2); % Eosinophils 0.7 % (0-6); % Immature Granulocytes 0.1 % (0-0.5); % Lymphocytes 22.6 % (20.5-51.1); % Monocytes 11.2 % (1.7-9.3); % Neutrophils 64.8 % (42.2-75.2); Absolute Eosinophils 0.1 10^3/uL (0-0.7); Absolute Lymphocytes 1.5 10^3/uL (1.2-3.4); Absolute Monocytes 0.8 10^3/uL (0.1-0.6); Absolute Neutrophils 4.4 10^3/uL (1.4-6.5); Hematocrit 31.6 % (37.0-47.0); Hemoglobin 10.4 g/dL (12.0-16.0); Mean Corp Hgb Conc. 32.9 g/dL (33.0-37.0); Mean Corpuscular Hgb 27.9 pg (27.0-31.0); Mean Corpuscular Volume 84.7 fL (81.0-99.0); Mean Platelet Volume 8.6 fL (7.4-10.4); Nucleated Red Blood Cells % 0 %; Platelet Count 295 10^3/uL (130-400); Red Blood Cell Count 3.73 10^6/uL (4.20-5.40); Red Cell Dist. Width 14.7 % (11.5-14.5); White Blood Cell Count 6.8 10^3/uL (4.8-10.8)
[2025-03-13 14:34] LABS: ALT (SGPT) 21 U/L (0-35); AST (SGOT) 30 U/L (14-36); Albumin 4.4 g/dl (3.5-5.0); Alkaline Phosphatase 44 U/L (38-126); Blood Urea Nitrogen 40 mg/dl (7-17); Calcium 9.9 mg/dl (8.4-10.2); Carbon Dioxide 28 mmol/L (22-30); Chloride 101 mmol/L (98-107); Glucose 107 mg/dl (70-99); Potassium 4.5 mmol/L (3.5-5.1); Sodium 137 mmol/L (135-145); Total Bilirubin 0.5 mg/dl (0.2-1.3); Total Protein 7.7 g/dl (6.3-8.2); eGFR 48.94
== END ==
LOC: REG 10:04
PROVIDERS: ATTENDING PHYSICIAN Internal Medicine Cardiovascular Disease; FAMILY PHYSICIAN Internal Medicine Geriatric Medicine
DX: I10 Essential (primary) hypertension (principal); I48.0 Paroxysmal atrial fibrillation; E78.5 Hyperlipidemia, unspecified
CPT/HCPCS: 36415; 80053; 85025

== ENCOUNTER → 2025-03-15 14:46 | Outpatient (REF) | payer MEDICARE, SELFPAY ==
[2025-03-15 15:46] LABS: Hematocrit 29.2 % (37.0-47.0); Hemoglobin 9.9 g/dL (12.0-16.0); Mean Corp Hgb Conc. 33.9 g/dL (33.0-37.0); Mean Corpuscular Volume 83.0 fL (81.0-99.0); Nucleated Red Blood Cells % 0 %; Platelet Count 272 10^3/uL (130-400); Red Cell Dist. Width 14.7 % (11.5-14.5); Reticulocyte Count 1.1 % (0.4-2.8)
[2025-03-15 16:10] LABS: Iron 29 ug/dl (37-170)
[2025-03-15 16:12] LABS: C-Reactive Protein < 5.00 mg/L (0.0-10.00)
[2025-03-15 16:19] LABS: Total Iron Binding Capacity 407 ug/dl (265-497)
[2025-03-15 16:47] LABS: Ferritin 15.5 ng/ml (11.1-264.0)
== END ==
LOC: REG 14:46
PROVIDERS: ATTENDING PHYSICIAN Nurse Practitioner Family; FAMILY PHYSICIAN Internal Medicine Geriatric Medicine
DX: R06.00 Dyspnea, unspecified (principal); D64.9 Anemia, unspecified; I48.0 Paroxysmal atrial fibrillation
CPT/HCPCS: 36415; 82728; 83540; 83550; 84443; 85025; 85045; 85652; 86140

== ENCOUNTER → 2025-03-27 11:06 | Outpatient (REF) | payer MEDICARE, SELFPAY | LOC: WDC 11:06 | PROVIDERS: ATTENDING PHYSICIAN Internal Medicine Geriatric Medicine | DX: Z12.31 Encounter for screening mammogram for malignant neoplasm of breast (principal) | CPT/HCPCS: 77063; 77067 ==

== ENCOUNTER 2025-03-28 06:24 | Day surgery (SDC) | payer MEDICARE, SELFPAY | END 2025-03-28 11:01 | disposition home or self-care (01) | LOC: GI 06:24 | PROVIDERS: ATTENDING PHYSICIAN Surgery | DX: Z12.11 Encounter for screening for malignant neoplasm of colon (principal); D12.2 Benign neoplasm of ascending colon; Z86.2 Personal history of diseases of the blood and blood-forming organs and certain disorders involving the immune mechanism; Z79.01 Long term (current) use of anticoagulants | CPT/HCPCS: G0105 ==

== ENCOUNTER → 2025-03-31 08:41 | Outpatient (REF) | payer MEDICARE, SELFPAY | LOC: RAD 08:41 | PROVIDERS: ATTENDING PHYSICIAN Otolaryngology Facial Plastic Surgery; FAMILY PHYSICIAN Internal Medicine Geriatric Medicine | DX: R13.12 Dysphagia, oropharyngeal phase (principal) | CPT/HCPCS: 74221 ==

== ENCOUNTER 2025-04-11 11:38 | Outpatient (RCR) | payer MEDICARE, SELFPAY | END 2025-04-11 23:59 | disposition home or self-care (01) | LOC: RPT 11:38 | PROVIDERS: ATTENDING PHYSICIAN Internal Medicine Geriatric Medicine | DX: M54.51 Vertebrogenic low back pain (principal); Z73.6 Limitation of activities due to disability; M81.0 Age-related osteoporosis without current pathological fracture; M25.552 Pain in left hip; M25.551 Pain in right hip; R20.0 Anesthesia of skin; R26.89 Other abnormalities of gait and mobility | CPT/HCPCS: 97010; 97110 ==

== ENCOUNTER 2025-04-12 12:33 | Outpatient (RCR) | payer MEDICARE, SELFPAY ==
[2025-04-05 13:43] VITALS: BP 162/64
[2025-04-05] MEDS: INJECTAFER 265 MG IV (14:02)
[2025-04-05 15:09] VITALS: BP 147/62
[2025-04-12 13:11] VITALS: BP 169/57
[2025-04-12] MEDS: INJECTAFER 265 MG IV (13:22)
[2025-04-12 14:17] VITALS: BP 149/74
== END 2025-04-13 23:59 | disposition home or self-care (01) ==
LOC: OID 12:33
PROVIDERS: ATTENDING PHYSICIAN Nurse Practitioner Family
DX: D64.9 Anemia, unspecified (principal); Z95.0 Presence of cardiac pacemaker; Z79.01 Long term (current) use of anticoagulants
CPT/HCPCS: 96365; J1439

== ENCOUNTER → 2025-04-28 08:10 | Outpatient (REF) | payer MEDICARE, SELFPAY ==
[2025-04-28 09:44] LABS: Iron 112 ug/dl (37-170)
[2025-04-28 09:55] LABS: Total Iron Binding Capacity 305 ug/dl (265-497)
[2025-04-28 10:19] LABS: Ferritin 755.0 ng/ml (11.1-264.0)
[2025-04-28 15:54] LABS: Hematocrit 31.9 % (37.0-47.0); Hemoglobin 10.7 g/dL (12.0-16.0); Mean Corp Hgb Conc. 33.5 g/dL (33.0-37.0); Mean Corpuscular Volume 86.7 fL (81.0-99.0); Nucleated Red Blood Cells % 0 %; Platelet Count 243 10^3/uL (130-400); Red Cell Dist. Width 17.8 % (11.5-14.5); Reticulocyte Count 2.0 % (0.4-2.8)
== END ==
LOC: REG 08:10
PROVIDERS: ATTENDING PHYSICIAN Nurse Practitioner Family; OTHER PHYSICIAN Internal Medicine Cardiovascular Disease
DX: D50.9 Iron deficiency anemia, unspecified (principal); R79.89 Other specified abnormal findings of blood chemistry
CPT/HCPCS: 36415; 82728; 83540; 83550; 85025; 85045

== ENCOUNTER → 2025-05-01 15:21 | Outpatient (REF) | payer MEDICARE, SELFPAY ==
[2025-05-03 12:59] LABS: tTG IgA Antibody 7.7 EU/ml (0-19)
== END ==
LOC: REG 15:21
PROVIDERS: ATTENDING PHYSICIAN Internal Medicine Gastroenterology; FAMILY PHYSICIAN Internal Medicine Geriatric Medicine
DX: D50.9 Iron deficiency anemia, unspecified (principal)
CPT/HCPCS: 36415; 82784; 83516

== ENCOUNTER 2025-05-05 14:03 | Outpatient (RCR) | payer MEDICARE, SELFPAY | END 2025-05-10 12:49 | disposition home or self-care (01) | LOC: RPT 14:03 | PROVIDERS: ATTENDING PHYSICIAN Internal Medicine Geriatric Medicine | DX: M54.51 Vertebrogenic low back pain (principal); Z73.6 Limitation of activities due to disability; M81.0 Age-related osteoporosis without current pathological fracture; M25.552 Pain in left hip; M25.551 Pain in right hip; R20.0 Anesthesia of skin; R26.89 Other abnormalities of gait and mobility | CPT/HCPCS: 97010; 97110; 97112 ==

== ENCOUNTER 2025-05-19 06:16 | Day surgery (SDC) | payer MEDICARE, SELFPAY | END 2025-05-19 12:16 | disposition home or self-care (01) | LOC: GI 06:16 | PROVIDERS: ATTENDING PHYSICIAN Internal Medicine Gastroenterology | DX: K44.9 Diaphragmatic hernia without obstruction or gangrene (principal); D50.9 Iron deficiency anemia, unspecified | CPT/HCPCS: 43239; 88305 ==

== ENCOUNTER 2025-05-22 10:17 | Emergency (ER) | payer MEDICARE, SELFPAY ==
[2025-05-22 10:19] VITALS: BP 120/101
--- NOTE | 2025-05-22 10:54 | ED.GENMED ---
History of Present Illness
General
Chief Complaint: Cardiac Symptoms
Source: patient
Exam Limitations: none
Time Seen by Provider: 05/22/25 10:41
History of Present Illness
History of Present Illness:
See MDM
Past History
Past History
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
ED Past Surgical History: Cardiac ([place])
Social History
Tobacco: Non-smoker
Alcohol: None
Drug: None
Personal:
Living: with family
Employment: Retired
Phy Exam
Physical Exam
Physical Exam:
See MDM
Course
Orders/Labs/Results
Orders:
Orders
05/22/25 10:18
ECG [Electrocardiogram (*1)] Urgent
Reason for Study: Chest Pain
EKG- Treatment ONCE
05/22/25 10:52
Diltiazem HCl [Cardizem] 10 mg IV NOW STA
CR Chest - 2 Views Urgent
Comment:
Reason For Exam: SOB
05/22/25 11:22
Complete Blood Count/With Diff Urgent
05/22/25 12:15
Comprehensive Metabolic Panel Urgent
Magnesium Urgent
Troponin I Urgent
05/22/25 13:31
Diltiazem Extended Release [Cardizem Cd] 360 mg PO NOW STA
Abnormal Lab Results
05/22/25 05/22/25
11:22 12:15
RBC 4.14 L 10^6/uL
(4.20-5.40)
Hct 35.5 L %
(37.0-47.0)
RDW 17.2 H %
(11.5-14.5)
Absolute Lymphs (auto) 0.9 L 10^3/uL
(1.2-3.4)
Neutrophils % 77.8 H %
(42.2-75.2)
Lymphocytes % 12.9 L %
(20.5-51.1)
BUN 41 H mg/dl
(7-17)
Glucose 118 H mg/dl
(70-99)
AST 39 H U/L
(14-36)
05/22/25 11:22
05/22/25 12:15
Vital Signs
Initial and Last Documented VS:
Initial Vital Signs
Temp Pulse Resp BP Pulse Ox
97.6 F 142 16 120/101 98
05/22/25 10:19 05/22/25 10:19 05/22/25 10:19 05/22/25 10:19 05/22/25 10:19
Last Documented Vital Signs
Temp Pulse Resp BP Pulse Ox
97.6 F 104 12 137/80 97
05/22/25 10:19 05/22/25 13:02 05/22/25 13:02 05/22/25 12:00 05/22/25 13:02
MDM/Problems Addressed
Differential Diagnosis Includes:
Note:
CHIEF COMPLAINT(S)
Atrial Fibrillation
HISTORY OF PRESENT ILLNESS
The patient is an 84-year-old female who presented with recurrent atrial fibrillation. She reports having experienced atrial fibrillation multiple times in the past, typically lasting a few hours and resolving spontaneously. However, on this
occasion, the episode began at approximately 9:00 AM and appears to be more intense. The patient notes the onset of symptoms while engaging in normal activities, with increased severity compared to previous episodes. She recently underwent an
endoscopic procedure and was off her anticoagulant, Xarelto (rivaroxaban), for two days. The patient resumed Xarelto on Thursday, taking it again on Thursday, Thursday, and today.
The patient has not undergone cardioversion previously while being off anticoagulation recently, which poses a risk if procedures are performed without adequate anticoagulation. To address the current episode, an IV dose of diltiazem is planned. The
patient is on oral metoprolol and oral diltiazem but expressed that past use of amiodarone without a prescription did not provide relief.
She reports managing symptoms at home with her blood pressure cuff, and although she considered taking leftover amiodarone, she acknowledges it is not approved for as-needed use in her case. Currently, the patient denies any chest pain but has
experienced pressure previously, which she attributes as discomfort rather than actual pain. She denies acute symptoms at present.
An assessment of potential complications from atrial fibrillation, including shortness of breath and chest pressure, is warranted. The patient will undergo a chest X-ray to evaluate her lung status and a blood draw to assess cardiac enzymes such as
troponin, recognizing that elevated levels could be due to her rate-related atrial fibrillation.
PAST MEDICAL AND SURGICAL HISTORY
The patient mentioned episodes of past atrial fibrillation. She has also undergone two iron infusions due to severe anemia but has not had stents or interventions through cardiac catheterization.
SOCIAL HISTORY
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
MEDICATIONS
- Rivaroxaban (Xarelto) resumed three days ago
- Metoprolol
- Diltiazem (both oral and planned IV administration mentioned)
PHYSICAL EXAM
General: Alert, no acute distress.
Skin: Warm, dry.
Head: Normocephalic, atraumatic
Neck: Appears supple, trachea midline.
Eyes, Ears, Nose, Mouth, and Throat: Oral mucosa moist.
Cardiovascular: No signs of cyanosis. Tachycardic and irregular
Respiratory: Respirations are non-labored. Lungs clear
Abdomen: Non-distended
Musculoskeletal: No deformities
Neurological: No focal neurological deficit observed.
Psychiatric: Cooperative, appropriate mood and affect.
PLAN
- Administer an IV dose of diltiazem to control heart rate.
- Perform a chest X-ray to assess lung condition.
- Obtain bloodwork to check troponin levels and hemoglobin.
- Consult cardiology if troponin levels are elevated or if rhythm management requires additional intervention.
- Possible overnight monitoring for heart rate/rhythm stabilization and reassessment by cardiology.
DIFFERENTIAL DIAGNOSIS
The Differential Diagnosis includes, in no particular order and is not limited to:
1. Paroxysmal Atrial Fibrillation
2. Rate-related Myocardial Ischemia
3. Pulmonary Embolism
4. Congestive Heart Failure
5. Non-ST Elevation Myocardial Infarction (NSTEMI)
6. Hyperthyroidism
7. Anemia-related Cardiac Compromise
8. Valvular Heart Disease
9. Chronic Obstructive Pulmonary Disease Exacerbation
10. Hypertensive Heart Disease
05/22/25 - 13:32
Patient is now rate-controlled and reports significant improvement after receiving Cardizem. Although still in AFib, the patient feels well enough to be discharged. Cardiology was consulted; plan to increase Cardizem to 360 mg, a dose well-tolerated
by the patient previously. The patient is agreeable and comfortable with the plan. Cardiology will initiate follow-up contact.
SUMMARY OF ENCOUNTER
The 84-year-old female patient presented with recurrent and intense atrial fibrillation after recently missing doses of rivaroxaban due to an endoscopic procedure. In the emergency department, she received intravenous diltiazem (Cardizem) to control
her heart rate. She was not considered a candidate for cardioversion at this time due to a recent lapse in anticoagulation therapy with rivaroxaban. Following treatment, her heart rate was rate-controlled, and she reported feeling symptom-free and
comfortable with the idea of going home. The decision was made to manage her condition by increasing the oral diltiazem dose in the outpatient setting.
DISPOSITION
Discharge
MANAGEMENT OF THE PATIENTS CARE WAS DISCUSSED WITH
The cardiology team was consulted to arrange follow-up and adjust her diltiazem dosage.
PLAN
Increase the oral dose of diltiazem in the outpatient setting. Expedite follow-up with cardiology to monitor and adjust treatment as necessary.
MEDICATION RECONCILIATION
- Administered: Intravenous diltiazem (Cardizem) in the emergency department to control heart rate.
- Prescription adjustment planned: Increase oral diltiazem.
MEDICAL DECISION MAKING
- Number and Complexity of Problems Addressed: Chronic conditions affecting care include atrial fibrillation, history of prior episodes, and recent lapse in anticoagulation therapy. Differential diagnosis includes paroxysmal atrial fibrillation,
rate-related myocardial ischemia, pulmonary embolism, and other cardiac concerns.
- Data:
Category 3:
Discussion of management with other physician: Cardiology was consulted to adjust the diltiazem dose and expedite follow-up for further management.
DIAGNOSIS
- Paroxysmal Atrial Fibrillation, recurrent (ICD-10: I48.0)
- Anticoagulation therapy adjusted (ICD-10: Z79.01)
*Pulse Oximetry
SaO2: 98
Oxygen Mode of Delivery: Room air
Patient hypoxic: no
*EKG
Interpreted by ED Provider?: Yes
Interpretation: abnormal (A-fib with RVR at a rate of 137 bpm, normal axis, no STEMI)
*Critical Care Note
Total Time (30-74mins, 75-104mins- exclusive of procedures): Not Applicable
ED Attending Note
-
Portions of this chart may have been created with voice recognition software.� Occasional wrong word or��sound alike� substitutions may have occurred due to the inherent limitations of voice recognition software.
Discharge Plan
Departure
Patient Disposition: Home (Routine Discharge)
Date of Disposition: 05/22/25
Time of Disposition: 13:32
Patient with high blood pressure during this ER visit?: No
Discharge Problem:
Paroxysmal atrial fibrillation
Instructions: Atrial fibrillation (DC)
Prescriptions:
New
diltiazem HCl [Cardizem CD] 120 mg capsule,extended release 24hr
120 mg PO DAILY Qty: 30 0RF
No Action
valsartan [Diovan] 160 MG tablet
160 mg PO QPM
Patient Comments:
aliskiren [Tekturna] 150 MG tablet
150 mg PO DAILY
cholecalciferol (vitamin D3) [Vitamin D3] 1,000 UNIT tablet
1,000 unit PO DAILY
ezetimibe 10 MG tablet
10 mg PO QPM
acetaminophen 500 mg Tablet
250 mg PO Q6HPRN PRN (Reason: mild pain)
vitamin B complex Tablet
1 tab PO DAILY
rosuvastatin 20 mg Tablet
20 mg PO DAILY
nitroglycerin 0.2 mg/hr Patch 24 Hour
1 patch TRANSDERMAL DAILY
hydrochlorothiazide 25 mg Tablet
12.5 mg PO DAILY
Xarelto 20 mg Tablet
20 mg PO QPM
diltiazem HCl 240 mg tablet extended release 24 hr
240 mg PO QPM
Prolia 60 mg/mL Syringe
60 mg SC [id number]
valsartan 320 mg Tablet
320 mg PO DAILY
coenzyme Q10 [CoQ-10] 100 mg Capsule
100 mg PO DAILY
Referrals:
Vern Daniels MD [Family Provider, Internal Medicine]
Activity Restrictions/Additional Instructions:
Please return for any worsening symptoms.
You may return at any time if you have further concerns.
The acute care nurse practitioner stated that the office will reach out to you.
Until symptoms resolve, we are increasing your diltiazem dose. Please take the 120 mg tablet in addition to the 240 mg tablet daily. Your new dose is 360 mg daily until your symptoms resolve. When symptoms resolve, you can go back to the 240 mg
daily dose instead of the 360 mg dose.
Thank you for choosing [facility].
Interventions
Interventions:
*General Assessment Last Done: 05/22/25 11:07
*Neglect/Abuse Screening Last Done: 05/22/25 11:07
*ED- Fall Risk Assessment Last Done: 05/22/25 11:07
*ED COVID-19 Vaccine History Last Done: 05/22/25 11:07
ED- Cardiac Assessment Last Done: 05/22/25 11:07
ED- Pulmonary Assessment Last Done: 05/22/25 11:07
Discharge Date and Time
Print Language: [id number]
[2025-05-22] MEDS: CARDIZEM 10 MG IV (11:23)
[2025-05-22 11:25] VITALS: BP 127/61
[2025-05-22 11:36] LABS: Hematocrit 35.5 % (37.0-47.0); Hemoglobin 12.7 g/dL (12.0-16.0); Mean Corp Hgb Conc. 35.8 g/dL (33.0-37.0); Mean Corpuscular Volume 85.7 fL (81.0-99.0); Nucleated Red Blood Cells % 0 %; Platelet Count 288 10^3/uL (130-400); Red Cell Dist. Width 17.2 % (11.5-14.5)
[2025-05-22 12:00] VITALS: BP 137/80
[2025-05-22 12:54] LABS: Troponin I 0.014 ng/ml
[2025-05-22 13:01] LABS: ALT (SGPT) 35 U/L (0-35); AST (SGOT) 39 U/L (14-36); Albumin 4.6 g/dl (3.5-5.0); Alkaline Phosphatase 50 U/L (38-126); Blood Urea Nitrogen 41 mg/dl (7-17); Calcium 10.0 mg/dl (8.4-10.2); Carbon Dioxide 28 mmol/L (22-30); Chloride 101 mmol/L (98-107); Glucose 118 mg/dl (70-99); Magnesium 2.1 mg/dl (1.6-2.3); Potassium 4.5 mmol/L (3.5-5.1); Sodium 138 mmol/L (135-145); Total Protein 8.0 g/dl (6.3-8.2); eGFR > 60.00
[2025-05-22 13:44] VITALS: BP 146/89
[2025-05-22] MEDS: CARDIZEM CD 360 MG PO (13:44)
== END 2025-05-22 14:16 | disposition home or self-care (01) ==
LOC: EMR 10:17
PROVIDERS: EMERGENCY PHYSICIAN Student in an Organized Health Care Education/Training Program; FAMILY PHYSICIAN Internal Medicine Geriatric Medicine
DX: I48.0 Paroxysmal atrial fibrillation (principal); I10 Essential (primary) hypertension; Z79.01 Long term (current) use of anticoagulants; Z98.890 Other specified postprocedural states; Z88.6 Allergy status to analgesic agent; Z88.1 Allergy status to other antibiotic agents; Z88.8 Allergy status to other drugs, medicaments and biological substances; Z91.048 Other nonmedicinal substance allergy status
CPT/HCPCS: 99284; 71046; 80053; 83735; 84484; 85025; 93005

== ENCOUNTER → 2025-08-17 08:08 | Outpatient (REF) | payer MEDICARE, SELFPAY ==
[2025-08-17 09:30] LABS: Hematocrit 39.8 % (37.0-47.0); Hemoglobin 13.2 g/dL (12.0-16.0); Mean Corp Hgb Conc. 33.2 g/dL (33.0-37.0); Mean Corpuscular Volume 93.6 fL (81.0-99.0); Nucleated Red Blood Cells % 0 %; Platelet Count 278 10^3/uL (130-400); Red Cell Dist. Width 12.8 % (11.5-14.5)
[2025-08-17 09:51] LABS: Urine Character Clear (Clear)
[2025-08-17 10:32] LABS: Vitamin D, 25-OH*** 60.9 ng/mL (30-80)
[2025-08-17 10:48] LABS: ALT (SGPT) 47 U/L (0-35); AST (SGOT) 43 U/L (14-36); Albumin 4.8 g/dl (3.5-5.0); Alkaline Phosphatase 45 U/L (38-126); Blood Urea Nitrogen 33 mg/dl (7-17); Calcium 9.7 mg/dl (8.4-10.2); Carbon Dioxide 30 mmol/L (22-30); Chloride 97 mmol/L (98-107); Glucose 108 mg/dl (70-99); HDL Cholesterol 62 mg/dl; Iron 111 ug/dl (37-170); LDL Cholesterol, Calculated 66 mg/dl; Potassium 4.1 mmol/L (3.5-5.1); Sodium 134 mmol/L (135-145); Total Protein 8.5 g/dl (6.3-8.2); Very Low Density Lipoprotein 15 mg/dl (0-30); eGFR 54.87
[2025-08-17 10:50] LABS: Ferritin 287.0 ng/ml (11.1-264.0)
[2025-08-17 10:57] LABS: Total Iron Binding Capacity 293 ug/dl (265-497)
== END ==
LOC: REG 08:08
PROVIDERS: ATTENDING PHYSICIAN Internal Medicine Geriatric Medicine
DX: I10 Essential (primary) hypertension (principal); E78.5 Hyperlipidemia, unspecified; I48.0 Paroxysmal atrial fibrillation; M80.00XD Age-related osteoporosis with current pathological fracture, unspecified site, subsequent encounter for fracture with routine healing; D64.9 Anemia, unspecified; D50.9 Iron deficiency anemia, unspecified; E55.9 Vitamin D deficiency, unspecified; Z13.89 Encounter for screening for other disorder; N39.41 Urge incontinence
CPT/HCPCS: 36415; 80053; 80061; 81003; 81015; 82306; 82728; 83540; 83550; 85025